=== PATIENT | female | born 1965 | race American Indian/Alaskan Native ===

== ENCOUNTER 2021-07-23 00:40 | Inpatient (IN) | payer MEDICAID ==
--- NOTE | 2021-07-23 00:55 | Emergency Department Report ---
ED Shortness of Breath HPI - General Chief Complaint: Dyspnea/Respdistress Stated Complaint: VIPUL Time Seen by Provider: 07/23/21 00:48 Source: patient, EMS - History of Present Illness Initial Comments: Patient is 56 years old female with history of COPD and hypertension. Patient brought to the emergency room via EMS from home for evaluation of difficulty in breathing for the last few hours. EMS stated that patient initially oxygen saturation was 76% on room air improved to 96% on BiPAP. Patient received Solu- Medrol, magnesium sulfate, albuterol and Atrovent. Upon arrival to the ER patient stated that she is feeling better oxygen saturation currently is 97%. Patient denied any fever or chills. Patient stated that she had COVID-19 in Feb, 2021. MD Complaint: shortness of breath, cough -: This evening Improves With: oxygen, bronchodilators Known History Of: COPD Treatments Prior to Arrival: oxygen, bronchodilator, NIPPV - Related Data Allergies Allergy/AdvReac Type Severity Reaction Status Date / Time No Known Allergies Allergy Verified 07/23/21 01:49 ED Review of Systems ROS: Stated complaint: VIPUL Other details as noted in HPI Comment: All other systems reviewed and negative Constitutional: denies: chills, fever Respiratory: shortness of breath, SOB with exertion, SOB at rest, wheezing. d enies: cough Cardiovascular: dyspnea on exertion. denies: chest pain, palpitations Gastrointestinal: denies: abdominal pain, nausea, vomiting Musculoskeletal: denies: back pain Neurological: denies: headache, weakness ED Physical Exam - General General appearance: alert, in distress - Head Head exam: Present: atraumatic, normocephalic, normal inspection - Eye Eye exam: Present: normal appearance, PERRL - ENT ENT exam: Present: normal exam, normal orophraynx, mucous membranes moist - Neck Neck exam: Present: normal inspection, full ROM. Absent: tenderness, meningismus - Respiratory Respiratory exam: Present: respiratory distress, wheezes, rhonchi, accessory muscle use, decreased breath sounds, prolonged expiratory. Absent: rales - Cardiovascular Cardiovascular Exam: Present: regular rate, normal rhythm, normal heart sounds - GI/Abdominal GI/Abdominal exam: Present: soft, normal bowel sounds. Absent: distended, tenderness, guarding, rebound, rigid, mass, bruit, pulsatile mass, hernia - Extremities Exam Extremities exam: Present: normal inspection, full ROM, normal capillary refill. Absent: tenderness, pedal edema - Back Exam Back exam: Present: normal inspection, full ROM. Absent: CVA tenderness (R), CVA tenderness (L) - Neurological Exam Neurological exam: Present: alert, oriented X3, CN II-XII intact - Psychiatric Psychiatric exam: Present: normal mood - Skin Skin exam: Present: warm, intact, normal color ED Course Vital Signs 07/23/21 07/23/21 07/23/21 01:25 01:33 01:45 Temperature 98.1 F Pulse Rate 109 H 109 H 106 H Respiratory 24 17 14 Rate Blood Pressure 145/77 158/82 Blood Pressure 145/77 [Right] O2 Sat by Pulse 99 98 99 Oximetry ED Medical Decision Making - Lab Data Result diagrams: 07/23/21 00:56 07/23/21 00:56 - EKG Data -: EKG Interpreted by Me EKG shows normal: sinus rhythm Rate: normal - EKG Data Interpretation: no acute changes - Radiology Data Radiology results: report reviewed - Medical Decision Making Patient is 56 years old female with history of COPD and hypertension. Patient brought to the emergency room via EMS from home for evaluation of difficulty in breathing for the last few hours. EMS stated that patient initially oxygen saturation was 76% on room air improved to 96% on BiPAP. Patient received Solu- Medrol, magnesium sulfate, albuterol and Atrovent. Upon arrival to the ER patient stated that she is feeling better oxygen saturation currently is 97%. Patient denied any fever or chills. Patient stated that she had COVID-19 in Feb, 2021. Patient continued on BiPAP. Patient also received albuterol and Atrovent in the ER with improvement in her symptoms. Labs reviewed and showed a potassium of 3.2 and glucose of 398. Chest x-ray is unremarkable. I discussed the patient with Dr. Tom, he agreed to admit the patient to medical service for further management. Critical Care Time: Yes Critical care time in (mins) excluding proc time.: 30 Critical care attestation.: If time is entered above; I have spent that time in minutes in the direct care of this critically ill patient, excluding procedure time. ED Disposition Clinical Impression: Acute respiratory failure with hypoxia, Acute exacerbation of COPD with asthma, Acute hypokalemia, Acute hyperglycemia Disposition: ADMITTED INPATIENT Is pt being admited?: Yes Condition: Stable
[2021-07-23 01:19] LABS: Basophils % (Auto) 0.2 % (0.0-1.8); Eosinophils # (Auto) 0.2 K/mm3 (0.0-0.4); Eosinophils % (Auto) 1.7 % (0.0-4.3); Hematocrit 32.9 % (30.3-42.9); Hemoglobin 10.9 gm/dl (10.1-14.3); Lymphocytes # (Auto) 2.8 K/mm3 (1.2-5.4); Lymphocytes % (Auto) 28.9 % (13.4-35.0); Mean Corpuscular HGB Conc 33 % (30-34); Mean Corpuscular Volume 83 fl (79-97); Monocytes # (Auto) 0.8 K/mm3 (0.0-0.8); Monocytes % (Auto) 8.5 % (0.0-7.3); Platelet Count 241 K/mm3 (140-440); Red Blood Count 3.98 M/mm3 (3.65-5.03); Red Cell Distribution Width 18.7 % (13.2-15.2)
[2021-07-23 01:27] LABS: INR 0.9 (0.87-1.13)
[2021-07-23 01:28] LABS: Partial Thromboplastin Time 25.6 Sec. (24.2-36.6)
[2021-07-23 01:33] LABS: BUN/Creatinine Ratio 24; Blood Urea Nitrogen 29 mg/dL (7-17); Calcium 9.1 mg/dL (8.4-10.2); Hemolysis Index 4
[2021-07-23 01:37] LABS: Alanine Aminotransferase 10 units/L (7-56); Albumin 3.3 g/dL (3.9-5)
--- NOTE | 2021-07-23 01:39 | XRay Report ---
CHEST 1 VIEW 07/23/2021 12:32 AM INDICATION / CLINICAL INFORMATION: Dyspnea. COMPARISON: None available. FINDINGS: SUPPORT DEVICES: None. HEART / MEDIASTINUM: No significant abnormality. LUNGS / PLEURA: Mild increased interstitial markings both lower lung gar. No pneumothorax. ADDITIONAL FINDINGS: No significant additional findings. IMPRESSION: 1. Probable mild CHF Signer Name: David Hopkins MD Signed: 07/23/2021 1:35 AM Workstation Name: [id number]
[2021-07-23 01:49] LABS: Bilirubin,Direct < 0.2 mg/dL (0-0.2)
[2021-07-23] MEDS ORDERED: ALBUTEROL 2.5 MG/3 ML NEBU IH ONE (01:50)
[2021-07-23] MEDS ORDERED: IPRATROPIUM 0.02% NEBU 2.5 ML IH ONE (01:50)
[2021-07-23] MEDS ORDERED: HYDROmorphone 1 MG/1 ML INJ IV PRN (04:42)
[2021-07-23] MEDS ORDERED: ONDANSETRON 4 MG/2 ML INJ IV PRN (04:42)
[2021-07-23] MEDS ORDERED: ALBUTEROL 2.5 MG/3 ML NEBU IH PRN (04:42)
[2021-07-23] MEDS ORDERED: ACETAMINOPHEN 325 MG TAB PO PRN (04:42)
[2021-07-23] MEDS ORDERED: oxyCODONE /ACETAMINOPHEN 5-325MG TAB PO PRN (04:42)
[2021-07-23] MEDS ORDERED: INSULIN REGULAR, HUMAN 100 UNITS/1 ML IV ONE (04:46)
--- NOTE | 2021-07-23 04:49 | History and Physical Report ---
History of Present Illness Date of examination: 07/23/21 Date of admission: 07/23/21 Chief complaint: Shortness of breath Respiratory distress History of present illness: 56 years old female with history of COPD and hypertension was brought to the emergency room via EMS from home for evaluation of difficulty in breathing for the last few hours. patient initially oxygen saturation was 76% on room air improved to 96% on BiPAP. Patient received Solu-Medrol, magnesium sulfate, albuterol and Atrovent. Upon arrival to the ER patient stated that she is feeling better oxygen saturation currently is 97%. Patient denied any fever or chills. Patient stated that she had COVID-19 in Feb, 2021. Patient continued on BiPAP. Patient also received albuterol and Atrovent in the ER with improvement in her symptoms. Labs reviewed and showed a potassium of 3.2 and glucose of 398. Chest x-ray is unremarkable. We are going to admit the patient with a diagnosis of acute respiratory failure/COPD exacerbation Med rec is not available Past History Past Medical History: COPD, hypertension Medications and Allergies Allergies Allergy/AdvReac Type Severity Reaction Status Date / Time No Known Allergies Allergy Verified 07/23/21 01:49 Review of Systems All systems: negative Cardiovascular: shortness of breath, dyspnea on exertion Respiratory: shortness of breath, dyspnea on exertion, wheezing Exam - Constitutional Vitals: Temp Pulse Resp BP Pulse Ox 98.1 F 106 H 14 158/82 99 07/23/21 01:25 07/23/21 01:45 07/23/21 01:45 07/23/21 01:45 07/23/21 01:45 General appearance: Present: no acute distress, well-nourished - EENT Eyes: Present: PERRL ENT: hearing intact, clear oral mucosa - Neck Neck: Present: supple, normal ROM - Respiratory Respiratory effort: normal Respiratory: bilateral: wheezing - Cardiovascular Heart Sounds: Present: S1 & S2. Absent: rub, click - Extremities Extremities: pulses symmetrical, No edema Peripheral Pulses: within normal limits - Abdominal General gastrointestinal: Present: soft, non-tender, non-distended, normal bowel sounds Female genitourinary: Present: normal - Integumentary Integumentary: Present: clear, warm, dry - Musculoskeletal Musculoskeletal: gait normal, strength equal bilaterally - Psychiatric Psychiatric: appropriate mood/affect, intact judgment & insight - Neurologic Neurologic: CNII-XII intact, moves all extremities HEART Score - HEART Score Troponin: Troponin T < 0.010 ng/mL (0.00-0.029) 07/23/21 00:56 Results - Labs CBC & Chem 7: 07/23/21 00:56 10 00:56 Labs: Laboratory Last Values WBC 9.8 K/mm3 (4.5-11.0) 07/23/21 00:56 RBC 3.98 M/mm3 (3.65-5.03) 07/23/21 00:56 Hgb 10.9 gm/dl (10.1-14.3) 07/23/21 00:56 Hct 32.9 % (30.3-42.9) 07/23/21 00:56 MCV 83 fl (79-97) 07/23/21 00:56 MCH 27 pg (28-32) L 07/23/21 00:56 MCHC 33 % (30-34) 07/23/21 00:56 RDW 18.7 % (13.2-15.2) H 07/23/21 00:56 Plt Count 241 K/mm3 (140-440) 07/23/21 00:56 Lymph % (Auto) 28.9 % (13.4-35.0) 07/23/21 00:56 [place] % (Auto) 8.5 % (0.0-7.3) H 07/23/21 00:56 Eos % (Auto) 1.7 % (0.0-4.3) 07/23/21 00:56 Baso % (Auto) 0.2 % (0.0-1.8) 07/23/21 00:56 Lymph # (Auto) 2.8 K/mm3 (1.2-5.4) 07/23/21 00:56 [place] # (Auto) 0.8 K/mm3 (0.0-0.8) 07/23/21 00:56 Eos # (Auto) 0.2 K/mm3 (0.0-0.4) 07/23/21 00:56 Baso # (Auto) 0.0 K/mm3 (0.0-0.1) 07/23/21 00:56 Seg Neutrophils % 60.7 % (40.0-70.0) 07/23/21 00:56 Seg Neutrophils # 5.9 K/mm3 (1.8-7.7) 07/23/21 00:56 PT 12.7 Sec. (12.2-14.9) 07/23/21 00:56 INR 0.90 (0.87-1.13) 07/23/21 00:56 APTT 25.6 Sec. (24.2-36.6) 07/23/21 00:56 Sodium 140 mmol/L (137-145) 07/23/21 00:56 Potassium 3.2 mmol/L (3.6-5.0) L 07/23/21 00:56 Chloride 102.7 mmol/L (98-107) 07/23/21 00:56 Carbon Dioxide 22 mmol/L (22-30) 07/23/21 00:56 Anion Gap 19 mmol/L 07/23/21 00:56 BUN 29 mg/dL (7-17) H 07/23/21 00:56 Creatinine 1.2 mg/dL (0.6-1.2) 07/23/21 00:56 Estimated GFR 46 ml/min 07/23/21 00:56 BUN/Creatinine Ratio 24 % 07/23/21 00:56 Glucose 398 mg/dL (65-100) H 07/23/21 00:56 Calcium 9.1 mg/dL (8.4-10.2) 07/23/21 00:56 Total Bilirubin 0.30 mg/dL (0.1-1.2) 07/23/21 00:56 Direct Bilirubin < 0.2 mg/dL (0-0.2) 07/23/21 00:56 Indirect Bilirubin 0.1 mg/dL 07/23/21 00:56 AST 12 units/L (5-40) 07/23/21 00:56 ALT 10 units/L (7-56) 07/23/21 00:56 Alkaline Phosphatase 107 units/L (35-129) 07/23/21 00:56 Troponin T < 0.010 ng/mL (0.00-0.029) 07/23/21 00:56 NT-Pro-B Natriuret Pep 65.39 pg/mL (0-900) 07/23/21 00:56 Total Protein 7.0 g/dL (6.3-8.2) 07/23/21 00:56 Albumin 3.3 g/dL (3.9-5) L 07/23/21 00:56 Albumin/Globulin Ratio 0.9 % 07/23/21 00:56 - Imaging and Cardiology Chest x-ray: report reviewed Assessment and Plan VTE prophylaxis?: Chemical Plan of care discussed with patient/family: Yes - Patient Problems (1) Acute respiratory failure with hypoxia Current Visit: Yes Status: Acute Plan to address problem: Admit the patient to the medical floor. Oxygen via nasal cannula three to per minute. DuoNeb nebulizer every 4 hours. Albuterol via nebulizer every 4 hours as needed. Solu-Medrol 40 mg IV every 8 hours. Singular 10 mg p.o. daily. Zithromax 500 mg p.o. daily. Continue the home medication. Continue BiPAP if needed (2) Acute exacerbation of COPD with asthma Current Visit: Yes Status: Acute Plan to address problem: Oxygen via nasal cannula three to per minute. DuoNeb nebulizer every 4 hours. Albuterol via nebulizer every 4 hours as needed. Solu-Medrol 40 mg IV every 8 hours. Singular 10 mg p.o. daily. Zithromax 500 mg p.o. daily. Continue the home medication. Continue BiPAP if needed (3) Hypertension Current Visit: Yes Status: Acute Plan to address problem: Hydralazine 10 mg IV every 6 hours as needed. We will continue the home medication (4) Hyperglycemia Current Visit: Yes Status: Acute Plan to address problem: We will put the patient on Humalog sliding scale with Accu-Chek before meals and at bedtime moderate dose coverage. Diabetic education (5) Hypokalemia Current Visit: Yes Status: Acute Plan to address problem: Potassium is supplemented. Recheck BMP in the morning (6) DVT prophylaxis Current Visit: Yes Status: Acute Plan to address problem: Heparin 5000 units subcu every 8 hours for DVT prophylaxis. Pepcid 20 mg p.o. twice daily for GI prophylaxis. Patient is a full code
[2021-07-23] MEDS ORDERED: DEXTROSE 50% IN WATER (25GM) 50 ML SYRINGE IV PRN ×2 (04:50→08:02)
[2021-07-23] MEDS ORDERED: FUROSEMIDE 40 MG/4 ML INJ IV ONE (04:51)
[2021-07-23] MEDS ORDERED: methylPREDNISolone Sod Succinate 40 MG/1 ML INJ IV SCH (06:00)
[2021-07-23] MEDS: HEPARIN 5,000 UNIT/1 ML VIAL SUB-Q SCH ×3 (06:45→22:10)
[2021-07-23] MEDS ORDERED: SODIUM CHLORIDE 0.9% 1000 ML 1,000 ML ONE (07:26)
[2021-07-23] MEDS ORDERED: INSULIN LISPRO 100 UNIT/ML SUB-Q SCH (07:30)
[2021-07-23] MEDS: POTASSIUM CHLORIDE 10 MEQ 10 MEQ/100 ML BAG IV SCH ×2 (07:35→09:08)
[2021-07-23] MEDS: FAMOTIDINE 20 MG TAB PO SCH ×2 (08:45→22:09)
[2021-07-23] MEDS: INSULIN NPH, HUMAN 100 UNIT/1 ML SUB-Q SCH ×2 (10:45→17:25)
[2021-07-23] MEDS ORDERED: INSULIN NPH/REGULAR 70/30 INJ SUB-Q ONE (13:00)
[2021-07-23] MEDS: INSULIN REGULAR, HUMAN 100 UNITS/1 ML SUB-Q SCH ×3 (13:27→22:22)
[2021-07-23] MEDS ORDERED: INSULIN NPH, HUMAN 100 UNIT/1 ML SUB-Q SCH (14:00)
[2021-07-23] MEDS: IPRATROPIUM/ALBUTEROL SULFATE 3 ML AMPUL.NEB IH SCH ×3 (14:30→20:00)
--- NOTE | 2021-07-23 14:54 | Event Note ---
Date: 07/23/21 The patient was evaluated today and is currently hemodynamically stable. Consult was placed for pulmonology in order to further assess the patient. A basal insulin regimen was initiated given significant hyperglycemia. We will continue to monitor.
[2021-07-24] MEDS: MONTELUKAST 10 MG TAB PO SCH ×2 (00:14→21:59)
[2021-07-24] MEDS: IPRATROPIUM/ALBUTEROL SULFATE 3 ML AMPUL.NEB IH SCH ×4 (01:38→20:22)
[2021-07-24] MEDS: HEPARIN 5,000 UNIT/1 ML VIAL SUB-Q SCH ×3 (05:52→21:59)
[2021-07-24 08:11] LABS: Basophils # (Auto) 0.1 K/mm3 (0.0-0.1); Basophils % (Auto) 1.3 % (0.0-1.8); Eosinophils % (Auto) 0.4 % (0.0-4.3); Lymphocytes # (Auto) 1.7 K/mm3 (1.2-5.4); Lymphocytes % (Auto) 20.3 % (13.4-35.0); Mean Corpuscular HGB Conc 35 % (30-34); Mean Corpuscular Volume 82 fl (79-97); Monocytes # (Auto) 0.6 K/mm3 (0.0-0.8); Monocytes % (Auto) 7.5 % (0.0-7.3); Platelet Count 228 K/mm3 (140-440); Red Blood Count 3.54 M/mm3 (3.65-5.03); Red Cell Distribution Width 18.7 % (13.2-15.2)
[2021-07-24 08:38] LABS: Calcium 9.5 mg/dL (8.4-10.2)
[2021-07-24] MEDS: INSULIN REGULAR, HUMAN 100 UNITS/1 ML SUB-Q SCH ×4 (09:29→23:08)
[2021-07-24] MEDS: INSULIN NPH, HUMAN 100 UNIT/1 ML SUB-Q SCH ×2 (09:39→17:05)
[2021-07-24] MEDS: FAMOTIDINE 20 MG TAB PO SCH ×2 (09:39→21:59)
[2021-07-24] MEDS: predniSONE 20 MG TAB PO SCH (09:39)
--- NOTE | 2021-07-24 10:43 | Electrocardiograph Report ---
[facility] Test Date: 2021-07-23 Test Time: 21:14:16 Pat Name: RAAD SANTANA Department: Room: A379 1 Gender: F [employer]: JULIA : [id number] Requested By: KENNY LANE Order Number: [id number] Reading MD: Oziel Frey Measurements Intervals [place] Rate: 101 P: 35 ND: 201 QRS: -9 QRSD: 90 T: -27 QT: 343 QTc: 444 Interpretive Statements Sinus tachycardia Borderline prolonged ND interval Left ventricular hypertrophy [id number]'[id number] PRWP No previous ECG available for comparison Electronically Signed On 07-24-2021 10:42:37 EDT by Oziel Fery
--- NOTE | 2021-07-24 12:20 | Consultation ---
History of Present Illness Consult date: 07/24/21 Requesting physician: KENIA BRADSHAW Reason for consult: hypoxemia History of present illness: 56 y/o female admitted with COPD exacerbation. Improve and ready for discharge. Past History Past Medical History: COPD, hypertension Medications and Allergies Allergies Allergy/AdvReac Type Severity Reaction Status Date / Time No Known Allergies Allergy Verified 07/23/21 01:49 Home Medications Medication Instructions Recorded Confirmed Last Taken Type Rosuvastatin Calcium 5 mg PO QHS 07/23/21 08/03/21 07/21/21 History ALBUTEROL NEB's [Proventil 0.083% 2.5 mg IH Q8H PRN #30 neb 07/25/21 08/03/21 Unknown Rx NEBS] Albuterol Sulfate [Proair 90 mcg IH Q4H PRN 30 Days #2 07/25/21 08/03/21 Unknown Rx Digihaler] aer.pw.bas Budesonide/Formoterol Fumarate 10.2 gm IH BID 30 Days #2 07/25/21 08/03/21 Unknown Rx [Symbicort 160-4.5 Mcg Inhaler] hfa.aer.ad Montelukast [Singulair] 10 mg PO QHS 30 Days #30 tablet 07/25/21 08/03/21 Unknown Rx ALBUTEROL NEB's [Proventil 0.083% 2.5 mg IH Q4HRT PRN nebu 08/05/21 Unknown Rx NEBS] Acetaminophen [Acetaminophen TAB] 650 mg PO Q4H PRN tablet 08/05/21 Unknown Rx Antacid [Alum-Mag Hydrox-Simeth 30 ml PO Q4H PRN oral.liqd 08/05/21 Unknown Rx [id number]/5Ml] Arformoterol Nebu [Brovana Nebu] 15 mcg IH Q12HRT ml 08/05/21 Unknown Rx AtorvaSTATin 10 mg PO QHS tablet 08/05/21 Unknown Rx Budesonide [Pulmicort Respules] 0.5 mg IH Q12HRT nebu 08/05/21 Unknown Rx Dextrose 50% in Water [D50W (25GM) 50 ml IV Q30MIN PRN syringe 08/05/21 Unknown Rx Syringe] Enoxaparin 40 mg SUB-Q QDAY syringe 08/05/21 Unknown Rx Insulin NPH, Human [NovoLIN N] 25 unit SUB-Q QPMDIAB units 08/05/21 Unknown Rx Lispro Insulin [HumaLOG] 0 unit SUB-Q Q4HR units 08/05/21 Unknown Rx Metoclopramide [Reglan INJ] 10 mg IV Q6H PRN vial 08/05/21 Unknown Rx Montelukast [Singulair] 10 mg PO QHS tablet 08/05/21 Unknown Rx Sennosides Tab [Senokot] 8.6 mg PO Q12HR PRN tablet 08/05/21 Unknown Rx hydrALAZINE [Apresoline INJ] 10 mg IV Q4HR PRN vial 08/05/21 Unknown Rx oxyCODONE /ACETAMINOPHEN [Percocet 1 tab PO Q6H PRN tablet 08/05/21 Unknown Rx 5/325 mg] Active Meds: Active Medications Acetaminophen (Acetaminophen 325 Mg Tab) 650 mg PO Q4H PRN PRN Reason: Pain MILD(1-3)/Fever >100.5/QUIROGA Albuterol (Albuterol 2.5 Mg/3 Ml Nebu) 2.5 mg IH Q4HRT PRN PRN Reason: Shortness Of Breath Albuterol/Ipratropium (Ipratropium/Albuterol Sulfate 3 Ml Ampul.Neb) 1 ampul IH Q6HRT [facility] Last Admin: 07/24/21 08:31 Dose: 1 ampul Documented by: Dextrose (Dextrose 50% In Water (25gm) 50 Ml Syringe) 50 ml IV Q30MIN PRN; Protocol PRN Reason: Hypoglycemia Famotidine (Famotidine 20 Mg Tab) 20 mg PO BID [facility] Last Admin: 07/24/21 09:39 Dose: 20 mg Documented by: Heparin Sodium (Porcine) (Heparin 5,000 Unit/1 Ml Vial) 5,000 unit SUB-Q Q8HR [facility] Last Admin: 07/24/21 05:52 Dose: 5,000 unit Documented by: Hydromorphone HCl (Hydromorphone 1 Mg/1 Ml Inj) 0.5 mg IV Q3H PRN PRN Reason: Pain , Severe (7-10) Insulin Human NPH (Insulin Nph, Human 100 Unit/1 Ml) 15 unit SUB-Q BIDDIAB [facility] Last Admin: 07/24/21 09:39 Dose: 15 unit Documented by: Insulin Human Regular (Insulin Regular, Human 100 Units/1 Ml) 0 units SUB-Q ACHS [facility]; Protocol Last Admin: 07/24/21 09:29 Dose: Not Given Documented by: Montelukast Sodium (Montelukast 10 Mg Tab) 10 mg PO QHS [facility] Last Admin: 07/24/21 00:14 Dose: 10 mg Documented by: Ondansetron HCl (Ondansetron 4 Mg/2 Ml Inj) 4 mg IV Q8H PRN PRN Reason: Nausea And Vomiting Oxycodone/Acetaminophen (Oxycodone /Acetaminophen 5-325mg Tab) 1 tab PO Q6H PRN PRN Reason: Pain, Moderate (4-6) Prednisone (Prednisone 20 Mg Tab) 40 mg PO QDAY [facility] Last Admin: 07/24/21 09:39 Dose: 40 mg Documented by: Sodium Chloride (Sodium Chloride 0.9% 10 Ml Flush Syringe) 10 ml IV BID [facility] Last Admin: 07/24/21 09:40 Dose: 10 ml Documented by: Sodium Chloride (Sodium Chloride 0.9% 10 Ml Flush Syringe) 10 ml IV PRN PRN PRN Reason: LINE FLUSH Review of Systems All systems: negative Physical Examination Vital signs: Vital Signs Temp Pulse Resp BP Pulse Ox 98.1 F 109 H 24 145/77 98 07/23/21 01:25 07/23/21 01:25 07/23/21 01:25 07/23/21 01:25 07/23/21 01:25 General appearance: alert Eyes: non-icteric Ascultation: Bilateral: diminished breath sounds Results - Laboratory Findings CBC and BMP: 07/25/21 06:45 07/25/21 06:45 PT/INR, D-dimer PT 12.7 Sec. (12.2-14.9) 07/23/21 00:56 INR 0.90 (0.87-1.13) 07/23/21 00:56 Abnormal lab findings: Abnormal Labs 07/23/21 07/23/21 07/23/21 00:56 00:56 00:56 RBC Hgb Hct MCH 27 L MCHC RDW 18.[address] [place] % (Auto) 8.5 H Seg Neutrophils % Potassium 3.2 L Chloride BUN 29 H Creatinine Glucose 398 H POC Glucose Albumin 3.3 L 07/23/21 07/23/2107/23/21 07:18 11:52 17:12 RBC Hgb Hct MCH MCHC RDW [place] % (Auto) Seg Neutrophils % Potassium Chloride BUN Creatinine Glucose POC Glucose 496 H 453 H 467 H Albumin 07/23/21 07/23/21 07/24/21 19:50 21:52 07:37 RBC 3.54 L Hgb 10.0 L Hct 29.0 L MCH MCHC 35 H RDW 18.[address] [place] % (Auto) 7.5 H Seg Neutrophils % 70.5 H Potassium Chloride BUN Creatinine Glucose POC Glucose 346 H 299 H Albumin 07/24/21 07/24/21 07/24/21 07:37 09:08 11:18 RBC Hgb Hct MCH MCHC RDW [place] % (Auto) Seg Neutrophils % Potassium 3.5 L D Chloride 109.4 H BUN 33 H Creatinine 1.3 H Glucose 109 H POC Glucose 117 H 193 H Albumin Assessment and Plan 56 y/o female with acute exacerbation of COPD 1. Steroid taper 2. Resume home COPD regimen 3. Follow up in office.
--- NOTE | 2021-07-24 16:11 | Progress Note ---
Assessment and Plan Assessment and plan: #Acute hypoxic respiratory failure -Hypoxic to 70s on room air Covid negative -Covid negative -Patient reports outpatient work-up for possible COPD, continue outpatient -Pulmonology consulted, recs appreciated -Home O2 evaluation, prior to discharge #History of vocal cord paralysis -Patient follow-up with ENT outpatient #Type 2 diabetes, insulin-dependent -Continue Humulin 15 units twice daily + sliding scale -Goal glucose less than 180 while inpatient #hypokalemia -K 3.5 -will monitor and replete Disposition Plan: Home Total Time Spent with Patient (Minutes): 30 minutes History Interval history: No acute events overnight. Patient denies shortness of breath, but feels comfortable with supplemental O2. Hospitalist Physical - Physical exam Narrative exam: GENERAL: Well-developed well-nourished. Lying in bed in no acute distress. HEENT: Nasal cannula at 2 L/min. CHEST/LUNGS: Expiratory stridor. CTAB. HEART/CARDIOVASCULAR: RRR. No murmur, rubs or gallops appreciated. ABDOMEN: +BS. NT/ND. NEURO: No focal motor deficit. Follows all commands. EXTREMITIES: No cyanosis, clubbing or edema. PSYCH: Cooperative. - Constitutional Vitals: Temp Pulse Resp BP Pulse Ox 98.1 F 88 18 148/85 96 07/24/21 11:48 07/24/21 16:00 07/24/21 16:00 07/24/21 11:48 07/24/21 13:23 General appearance: Present: no acute distress, well-nourished HEART Score - HEART Score Troponin: Troponin T < 0.010 ng/mL (0.00-0.029) 07/23/21 00:56 Results - Labs CBC & Chem 7: 07/24/21 07:37 07/24/21 07:37 Labs: Laboratory Last Values WBC 8.4 K/mm3 (4.5-11.0) 07/24/21 07:37 RBC 3.54 M/mm3 (3.65-5.03) L 07/24/21 07:37 Hgb 10.0 gm/dl (10.1-14.3) L 07/24/21 07:37 Hct 29.0 % (30.3-42.9) L 07/24/21 07:37 MCV 82 fl (79-97) 07/24/21 07:37 MCH 28 pg (28-32) 07/24/21 07:37 MCHC 35 % (30-34) H 07/24/21 07:37 RDW 18.7 % (13.2-15.2) H 07/24/21 07:37 Plt Count 228 K/mm3 (140-440) 07/24/21 07:37 Lymph % (Auto) 20.3 % (13.4-35.0) 07/24/21 07:37 [place] % (Auto) 7.5 % (0.0-7.3) H 07/24/21 07:37 Eos % (Auto) 0.4 % (0.0-4.3) 07/24/21 07:37 Baso % (Auto) 1.3 % (0.0-1.8) 07/24/21 07:37 Lymph # (Auto) 1.7 K/mm3 (1.2-5.4) 07/24/21 07:37 [place] # (Auto) 0.6 K/mm3 (0.0-0.8) 07/24/21 07:37 Eos # (Auto) 0.0 K/mm3 (0.0-0.4) 07/24/21 07:37 Baso # (Auto) 0.1 K/mm3 (0.0-0.1) 07/24/21 07:37 Seg Neutrophils % 70.5 % (40.0-70.0) H 07/24/21 07:37 Seg Neutrophils # 5.9 K/mm3 (1.8-7.7) 07/24/21 07:37 PT 12.7 Sec. (12.2-14.9) 07/23/21 00:56 INR 0.90 (0.87-1.13) 07/23/21 00:56 APTT 25.6 Sec. (24.2-36.6) 07/23/21 00:56 Sodium 144 mmol/L (137-145) 07/24/21 07:37 Potassium 3.5 mmol/L (3.6-5.0) L D 07/24/21 07:37 Chloride 109.4 mmol/L (98-107) H 07/24/21 07:37 Carbon Dioxide 22 mmol/L (22-30) 07/24/21 07:37 Anion Gap 16 mmol/L 07/24/21 07:37 BUN 33 mg/dL (7-17) H 07/24/21 07:37 Creatinine 1.3 mg/dL (0.6-1.2) H 07/24/21 07:37 Estimated GFR 51 ml/min 07/24/21 07:37 BUN/Creatinine Ratio 25 % 07/24/21 07:37 Glucose 109 mg/dL (65-100) H 07/24/21 07:37 POC Glucose 264 mg/dL (70-105) H 07/24/21 15:38 Calcium 9.5 mg/dL (8.4-10.2) 07/24/21 07:37 Phosphorus 4.40 mg/dL (2.5-4.5) 07/24/21 07:37 Magnesium 2.20 mg/dL (1.7-2.3) 07/24/21 07:37 Total Bilirubin 0.30 mg/dL (0.1-1.2) 07/23/21 00:56 Direct Bilirubin < 0.2 mg/dL (0-0.2) 07/23/21 00:56 Indirect Bilirubin 0.1 mg/dL 07/23/21 00:56 AST 12 units/L (5-40) 07/23/21 00:56 ALT 10 units/L (7-56) 07/23/21 00:56 Alkaline Phosphatase 107 units/L (35-129) 07/23/21 00:56 Troponin T < 0.010 ng/mL (0.00-0.029) 07/23/21 00:56 NT-Pro-B Natriuret Pep 65.39 pg/mL (0-900) 07/23/21 00:56 Total Protein 7.0 g/dL (6.3-8.2) 07/23/21 00:56 Albumin 3.3 g/dL (3.9-5) L 07/23/21 00:56 Albumin/Globulin Ratio 0.9 % 07/23/21 00:56 Valadez/IV: Voiding Method Toilet Active Medications - Current Medications Current Medications: Generic Name Dose Route Start Last Admin Trade Name Freq PRN Reason Stop Dose Admin Acetaminophen 650 mg 07/23/21 04:42 Acetaminophen 325 Mg Tab PO Q4H PRN Pain MILD(1-3)/Fever >100.5/QUIROGA Albuterol 2.5 mg 07/23/21 04:42 Albuterol 2.5 Mg/3 Ml Nebu IH Q4HRT PRN Shortness Of Breath Albuterol/Ipratropium 1 ampul 07/23/21 08:00 07/24/21 16:00 Ipratropium/Albuterol Sulfate 3 Ml Ampul.Neb IH 1 ampul Q6HRT JUSTO Administration Dextrose 50 ml 07/23/21 08:02 Dextrose 50% In Water (25gm) 50 Ml Syringe IV Q30MIN PRN Hypoglycemia Protocol Famotidine 20 mg 07/23/21 10:00 07/24/21 09:39 Famotidine 20 Mg Tab PO 20 mg BID JUSTO Administration Heparin Sodium (Porcine) 5,000 unit 07/23/21 06:00 07/24/21 13:00 Heparin 5,000 Unit/1 Ml Vial SUB-Q 5,000 unit Q8HR JUSTO Administration Hydromorphone HCl 0.5 mg 07/23/21 04:42 Hydromorphone 1 Mg/1 Ml Inj IV Q3H PRN Pain , Severe (7-10) Insulin Human NPH 15 unit 07/23/21 09:00 07/24/21 09:39 Insulin Nph, Human 100 Unit/1 Ml SUB-Q 15 unit BIDDIAB JUSTO Administration Insulin Human Regular 0 units 07/23/21 11:30 07/24/21 13:04 Insulin Regular, Human 100 Units/1 Ml SUB-Q 3 units ACHS JUSTO Administration Protocol Montelukast Sodium 10 mg 07/23/21 22:00 07/24/21 00:14 Montelukast 10 Mg Tab PO 10 mg QHS JUSTO Administration Ondansetron HCl 4 mg 07/23/21 04:42 Ondansetron 4 Mg/2 Ml Inj IV Q8H PRN Nausea And Vomiting Oxycodone/Acetaminophen 1 tab 07/23/21 04:42 Oxycodone /Acetaminophen 5-325mg Tab PO Q6H PRN Pain, Moderate (4-6) Prednisone 40 mg 07/24/21 10:00 10 09:39 Prednisone 20 Mg Tab PO 40 mg QDAY JUSTO Administration Sodium Chloride 10 ml 07/23/21 10:00 07/24/21 09:40 Sodium Chloride 0.9% 10 Ml Flush Syringe IV 10 ml BID JUSTO Administration Sodium Chloride 10 ml 07/23/21 04:42 Sodium Chloride 0.9% 10 Ml Flush Syringe IV PRN PRN LINE FLUSH Nutrition/Malnutrition Assess - Dietary Evaluation Nutrition/Malnutrition Findings: Nutrition Notes Start: 07/23/21 16:09 Freq: Status: Active Protocol: Document 07/23/21 16:09 TIA (Rec: 07/23/21 16:43 TIA [id number]) Nutrition Notes Need for Assessment generated from: Education Initial or Follow up Assessment Current Diagnosis Respiratory Failure Other Pertinent Diagnosis Hx of COPD, HTN, and COVID-19 Current Diet Cardiac diet (since B 07/23). Labs/Tests 07/23: K 3.2, BUN 29, GLU 398. Pertinent Medications 07/23: Nutritionally uneremarkable. Height 5 ft 4 in Weight 106.633 kg [place] Body Weight (kg) 54.54 BMI 40.3 Weight Status Obese Percent of energy/protein needs met: Prescribed Cardiac diet provides for all energy/ protein needs (2,230 Kcal/85 g ) during LOS. Burn Absent Trauma Absent GI Symptoms Diarrhea Food Allergy No Skin Integrity/Comment Integumentary; clear, warm, dry. Minimum of two criteria No physical signs of malnutrition #1 Nutrition Diagnosis Food and nutrition-related knowledge deficit Comments: Pt could benefit from some nutrition education to support multiple chronic metabolic conditions present at the time . Etiology Concomitant chronic metabolic conditions. As Evidenced by Signs and Symptoms BMI 40.3, And Hx of COPD, and HTN. Is patient on ventilator? No Is Patient Ambulatory and/or Out of Bed Yes REE-([facility]-ambulatory/OOB) [ 6670.729 NUTR.MSJOOB] Kcal/Kg value to use for calculation 21 Approximate Energy Requirements Using 2239 kcal/Kg Calculation Used for Recommendations Kcal/kg Additional Notes Protein: 0.8-1.0 g/Kg/day; 44- 55 g/day; 176-220 Kcal/day ( from IBW). Fluids: 1.0 ml/Kcal, or as per MD. Nutrition Intervention Change Diet Order: Continue Cardiac Diet. Education Handouts Provided AND: Hypertension Nutrition Therapy, Weight Loss Tips, and Metabolic Syndrome Menu. Goal #1 Provide Pt with educational tools to support behavioral changes towards a healthy lifestyle. Goal #2 Maintain body weight within +/ -3% of current BWt during LOS. Goal #3 Achieve and maintain acceptable chemistry lab values during LOS. Follow-Up By: 07/25/21 Additional Comments Educational matrial ready to be delivered once Pt is located in her room. Continue monitoring acceptance of food, %PO intake of meals, hydration, and BM.
[2021-07-25 05:28] VITALS: BP 133/62
[2021-07-25] MEDS: HEPARIN 5,000 UNIT/1 ML VIAL SUB-Q SCH ×2 (07:01→13:10)
[2021-07-25 07:06] LABS: Hematocrit 29.5 % (30.3-42.9); Hemoglobin 9.7 gm/dl (10.1-14.3); Mean Corpuscular HGB Conc 33 % (30-34); Mean Corpuscular Volume 83 fl (79-97); Platelet Count 255 K/mm3 (140-440); Red Blood Count 3.56 M/mm3 (3.65-5.03); Red Cell Distribution Width 18.9 % (13.2-15.2)
[2021-07-25 07:45] LABS: Calcium 9.2 mg/dL (8.4-10.2)
[2021-07-25] MEDS ORDERED: IPRATROPIUM/ALBUTEROL SULFATE 3 ML AMPUL.NEB IH SCH (08:00)
[2021-07-25] MEDS: INSULIN REGULAR, HUMAN 100 UNITS/1 ML SUB-Q SCH ×2 (08:21→12:27)
[2021-07-25] MEDS: INSULIN NPH, HUMAN 100 UNIT/1 ML SUB-Q SCH (08:29)
[2021-07-25] MEDS ORDERED: POTASSIUM CHLORIDE ER 20 MEQ TAB PO NR (09:00)
[2021-07-25] MEDS: predniSONE 20 MG TAB PO SCH (09:58)
[2021-07-25] MEDS: FAMOTIDINE 20 MG TAB PO SCH (09:58)
[2021-07-25] MEDS ORDERED: IPRATROPIUM/ALBUTEROL SULFATE 3 ML AMPUL.NEB IH NR (12:30)
--- NOTE | 2021-07-25 12:37 | Discharge Summary ---
Providers - Providers Date of Admission: 07/23/21 06:22 Date of discharge: 07/25/21 Attending physician: KELLI BARRAZA MD 07/23/21 04:50 Consult to Dietitian/Nutrition [CONS] Routine Physician Instructions: Reason For Exam: Reason for Consult: Diet education 07/23/21 09:12 Consult to Physician [CONS] Routine Comment: Consulting Provider: TIMO CARLSON Physician Instructions: Reason For Exam: COPD exacerbation; uncontrolled COPD at baseline Primary care physician: GANG RIPSAW OPERATOR Hospitalization Reason for admission: Respiratory failure Condition: Stable Hospital course: 56-year-old female history of COPD, hypertension and vocal cord paralysis who presented with difficulty breathing on 07/23. Found to be hypoxic with O2 saturation 76% on room air. She was admitted for acute hypoxic respiratory failure. Started on BiPAP received nebulizer treatments and steroids. Her potassium was found to be 3.2 and glucose was 398. Her glucose improved with sliding scale. Potassium was repleted. Once stable she was discharged home with instructions to follow-up with ENT and pulmonary outpatient. Disposition: 01 HOME / SELF CARE / HOMELESS Final Discharge Diagnosis (Prints w/discharge instructions): Acute hypoxic respiratory failure. Hypokalemia. Insulin-dependent type 2 diabetes. COPD exacerbation Time spent for discharge: 10 minutes Core Measure Documentation - Palliative Care Palliative Care/ Comfort Measures: Not Applicable - Core Measures Any of the following diagnoses?: none Exam - Physical Exam Narrative exam: GENERAL: Well-developed well-nourished. Lying in bed in no acute distress. CHEST/LUNGS: Expiratory stridor. CTAB. HEART/CARDIOVASCULAR: RRR. No murmur, rubs or gallops appreciated. ABDOMEN: +BS. NT/ND. NEURO: No focal motor deficit. Follows all commands. EXTREMITIES: No cyanosis, clubbing or edema. PSYCH: Cooperative. - Constitutional Vitals: Temp Pulse Resp BP Pulse Ox 98.3 F 76 22 133/62 95 07/25/21 05:26 07/25/21 05:26 07/25/21 05:26 07/25/21 05:26 07/25/21 08:58 Plan Care Plan Goals: Please follow-up with your Pulmonary appointment. We have prescribed you to inhalers. The albuterol inhaler,you only use if you absolutely have shortness of breath. The other inhaler called Symbicort, and will use daily. Assessment: Patient admitted with acute hypoxic respiratory failure. Respiratory failure resolved. Patient was evaluated for home oxygen and maintained excellent oxygen saturation with ambulation and at rest without oxygen. Pulmonary was consulted and recommended no changes. Patient was discharged with recommendations to follow through with outpatient pulmonary referral. Follow up with: PRIMARY CARE, [Primary Care Provider] - 3-5 Days Prescriptions: Montelukast [Singulair] 10 mg PO QHS 30 Days #30 tablet Albuterol Sulfate [Proair Digihaler] 90 mcg IH Q4H PRN 30 Days #2 aer.pw.bas PRN Reason: Shortness Of Breath ALBUTEROL NEB's [Proventil 0.083% NEBS] 2.5 mg IH Q8H PRN #30 neb PRN Reason: Shortness Of Breath Budesonide/Formoterol Fumarate [Symbicort 160-4.5 Mcg Inhaler] 10.2 gm IH BID 30 Days #2 hfa.aer.ad
== END 2021-07-25 14:30 | disposition home or self-care (01) | DRG 189 ==
LOC: ED 00:40 → 4A 06:22 → 3A 20:35
PROVIDERS: ADMIT Hospitalist; ATTEND Student in an Organized Health Care Education/Training Program
DX: J96.01 Acute respiratory failure with hypoxia (principal); J44.1 Chronic obstructive pulmonary disease with (acute) exacerbation; I10 Essential (primary) hypertension; Z20.822 Contact with and (suspected) exposure to COVID-19; E87.6 Hypokalemia; R73.9 Hyperglycemia, unspecified
CPT/HCPCS: 36415; 71045; 80048; 80076; 82962; 83735; 83880; 84100; 84132; 84484; 85025; 85027; 85610; 85730; 93005; 94640; 94760; G0378; J1644; J1815; J1940; J2920; J3480; J7030; J7512

== ENCOUNTER 2021-08-03 17:10 | Inpatient (IN) | payer MEDICAID ==
[2021-08-03] MEDS ORDERED: IPRATROPIUM 0.02% NEBU 2.5 ML IH ONE (17:32)
[2021-08-03] MEDS ORDERED: ALBUTEROL 2.5 MG/3 ML NEBU IH ONE (17:32)
[2021-08-03] MEDS ORDERED: methylPREDNISolone Sod Succinate 125 MG/2 ML INJ IV ONE (17:32)
[2021-08-03] MEDS ORDERED: MAGNESIUM SULFATE 2 GM/50 ML BAG IV ONE (17:33)
--- NOTE | 2021-08-03 17:37 | Emergency Department Report ---
ED Shortness of Breath HPI - General Chief Complaint: Dyspnea/Respdistress Stated Complaint: DIFFICULTY BREATHING Time Seen by Provider: 08/03/21 17:21 Source: EMS, old records reviewed Mode of arrival: Stretcher Limitations: No Limitations - History of Present Illness Initial Comments: 56-year-old female the past medical history of reactive airway disease after stan Covid in February of this year, diabetes, hypertension presents to the hospital planing of worsening shortness of breath today. Patient denies any lung disease prior to stan Covid. She has been back and forth to [facility] with complaints of wheezing and shortness of breath. She admitted here for the first time last week and diagnosed with COPD exacerbation. Patient sta ailin she gets temporary relief with emergent treatment but symptoms return. Patient developed worsening shortness of breath with difficulty speaking around and CPAP was initiated. Patient was placed on BiPAP here. As per respiratory therapist her room air O2 sat remained in the nineties with patient had increased work of breathing. Patient complained of sharp left-sided chest pain last night that has since resolved. Occasional cough reported. No history of PE/DVT. Patient using a inhaler and states that her nebulizer was not delivered yesterday as scheduled. PMD: [facility]. Patient saw her PMD aggravated today with referred to multiple specialists including a daily sales audit clerk. - Related Data Home Medications Medication Instructions Recorded Confirmed Last Taken Insulin Aspart (Nf) [NovoLOG 20 units SQ QAM 07/23/21 08/03/21 07/22/21 Flexpen] Insulin Aspart (Nf) [NovoLOG 22 units SQ QDAY 07/23/21 08/03/21 07/22/21 Flexpen] Insulin Aspart (Nf) [NovoLOG 25 units SQ QPM 07/23/21 08/03/21 07/21/21 Flexpen] Insulin Detemir [Levemir Flextouch] 40 units SQ QHS 07/23/21 08/03/21 07/22/21 Lisinopril [Zestril] 5 mg PO QDAY 07/23/21 08/03/21 07/22/21 Metformin HCl [metFORMIN] 1,000 mg PO BID 07/23/21 08/03/21 07/22/21 Rosuvastatin Calcium 5 mg PO QHS 07/23/21 08/03/21 07/21/21 Previous Rx's Medication Instructions Recorded Last Taken Type ALBUTEROL NEB's [Proventil 0.083% 2.5 mg IH Q8H PRN #30 neb 07/25/21 Unknown Rx NEBS] Albuterol Sulfate [Proair 90 mcg IH Q4H PRN 30 Days #2 07/25/21 Unknown Rx Digihaler] aer.pw.bas Budesonide/Formoterol Fumarate 10.2 gm IH BID 30 Days #2 07/25/21 Unknown Rx [Symbicort 160-4.5 Mcg Inhaler] hfa.aer.ad Montelukast [Singulair] 10 mg PO QHS 30 Days #30 tablet 07/25/21 Unknown Rx Nebulizer Accessories [Adult 1 each MC QDAY PRN #1 each 07/25/21 Unknown Rx Aerosol Mask] Nebulizer and Compressor 1 each MC QDAY #1 each 07/25/21 Unknown Rx [Innospire Mini Compressor Neb] predniSONE [Deltasone] 40 mg PO QDAY 2 Days #2 tablet 07/25/21 Unknown Rx Allergies Allergy/AdvReac Type Severity Reaction Status Date / Time No Known Allergies Allergy Verified 07/23/21 01:49 ED Review of Systems ROS: Stated complaint: DIFFICULTY BREATHING Other details as noted in HPI Comment: All other systems reviewed and negative ED Past Medical Hx - Past Medical History Hx Hypertension: Yes Hx CVA: No Hx Heart Attack/AMI: No Hx Congestive Heart Failure: No Hx Diabetes: Yes Hx Deep Vein Thrombosis: No Hx Pulmonary Embolism: No Hx GERD: No Hx Liver Disease: No Hx Renal Disease: No Hx Sickle Cell Disease: No Hx Arthritis: No Hx Headaches / Migraines: No Hx Seizures: No Hx Kidney Stones: No Hx Psychiatric Treatment: No Hx Asthma: Yes Hx COPD: Yes Hx Tuberculosis: No Hx Dementia: No Hx HIV: No - Surgical History Hx Coronary Stent: No Hx Open Heart Surgery: No Hx Pacemaker: No Hx Internal Defibrillator: No Hx Cholecystectomy: No Hx Appendectomy: No Hx Breast Surgery: No - Social History Smoking Status: Never Smoker - Medications Home Medications: Home Medications Medication Instructions Recorded Confirmed Last Taken Type Insulin Aspart (Nf) [NovoLOG 20 units SQ QAM 07/23/21 08/03/21 07/22/21 History Flexpen] Insulin Aspart (Nf) [NovoLOG 22 units SQ QDAY 07/23/21 08/03/21 07/22/21 History Flexpen] Insulin Aspart (Nf) [NovoLOG 25 units SQ QPM 07/23/21 08/03/21 07/21/21 History Flexpen] Insulin Detemir [Levemir Flextouch] 40 units SQ QHS 07/23/21 08/03/21 07/22/21 History Lisinopril [Zestril] 5 mg PO QDAY 07/23/21 08/03/21 07/22/21 History Metformin HCl [metFORMIN] 1,000 mg PO BID 07/23/21 08/03/21 07/22/21 History Rosuvastatin Calcium 5 mg PO QHS 07/23/21 08/03/21 07/21/21 History ALBUTEROL NEB's [Proventil 0.083% 2.5 mg IH Q8H PRN #30 neb 07/25/21 08/03/21 Unknown Rx NEBS] Albuterol Sulfate [Proair 90 mcg IH Q4H PRN 30 Days #2 07/25/21 08/03/21 Unknown Rx Digihaler] aer.pw.bas Budesonide/Formoterol Fumarate 10.2 gm IH BID 30 Days #2 07/25/21 08/03/21 Unknown Rx [Symbicort 160-4.5 Mcg Inhaler] hfa.aer.ad Montelukast [Singulair] 10 mg PO QHS 30 Days #30 tablet 07/25/21 08/03/21 Unknown Rx Nebulizer Accessories [Adult 1 each MC QDAY PRN #1 each 07/25/21 08/03/21 Unknown Rx Aerosol Mask] Nebulizer and Compressor 1 each MC QDAY #1 each 07/25/21 08/03/21 Unknown Rx [Innospire Mini Compressor Neb] predniSONE [Deltasone] 40 mg PO QDAY 2 Days #2 tablet 07/25/21 08/03/21 Unknown Rx ED Physical Exam - General Limitations: No Limitations - Other Other exam information: General: No acute distress Head: Atraumatic Eyes: normal appearance ENT: Moist mucous membranes Neck: Normal appearance, no midline tenderness Chest: Bilateral wheezing, tachypnea, on BiPAP CV: Regular rate and rhythm Abdomen: Soft, normal bowel sounds, nontender, nondistended, no rebound or guarding Back: Normal inspection Extremity: Normal inspection, full range of motion, no calf tenderness or leg edema Neuro: Alert O x 3, no facial asymmetry, speech clear, no gross motor sensory deficit Psych: Appropriate behavior Skin: No rash ED Course Vital Signs 08/03/21 08/03/21 08/03/21 17:18 17:21 18:19 Temperature 98.5 F Pulse Rate 114 H 110 H Respiratory 20 20 17 Rate Blood Pressure Blood Pressure 156/79 [Left] O2 Sat by Pulse 99 99 100 Oximetry 08/03/21 08/03/21 08/03/21 19:55 20:39 22:10 Temperature Pulse Rate 97 H 94 H Respiratory 20 16 14 Rate Blood Pressure 138/98 Blood Pressure [Left] O2 Sat by Pulse 99 99 100 Oximetry 08/03/21 08/03/21 08/03/21 22:16 22:30 22:45 Temperature Pulse Rate 99 H 95 H 97 H Respiratory 14 15 16 Rate Blood Pressure 146/83 153/83 Blood Pressure [Left] O2 Sat by Pulse 100 99 99 Oximetry 08/03/21 08/03/21 08/03/21 23:01 23:15 23:25 Temperature Pulse Rate 99 H 98 H 94 H Respiratory 15 15 15 Rate Blood Pressure 137/83 150/81 160/52 Blood Pressure [Left] O2 Sat by Pulse 99 99 99 Oximetry 08/03/21 08/03/21 08/04/21 23:31 23:45 00:01 Temperature Pulse Rate 96 H 92 H 91 H Respiratory 17 14 15 Rate Blood Pressure 147/79 136/80 128/74 Blood Pressure [Left] O2 Sat by Pulse 98 100 98 Oximetry ED Medical Decision Making - Lab Data Result diagrams: 08/03/21 18:12 08/03/21 18:12 Lab Results 08/03/21 08/03/21 08/03/21 Range/Units 18:12 18:12 18:12 WBC 9.9 (4.5-11.0) K/mm3 RBC 4.43 (3.65-5.03) M/mm3 Hgb 12.1 (10.1-14.3) gm/dl Hct 38.5 (30.3-42.9) % MCV 87 (79-97) fl MCH 27 L (28-32) pg MCHC 32 (30-34) % RDW 19.0 H (13.2-15.2) % Plt Count 281 (140-440) K/mm3 Lymph % (Auto) 16.8 (13.4-35.0) % [place] % (Auto) 7.2 (0.0-7.3) % Eos % (Auto) 1.0 (0.0-4.3) % Baso % (Auto) 0.4 (0.0-1.8) % Lymph # (Auto) 1.7 (1.2-5.4) K/mm3 [place] # (Auto) 0.7 (0.0-0.8) K/mm3 Eos # (Auto) 0.1 (0.0-0.4) K/mm3 Baso # (Auto) 0.0 (0.0-0.1) K/mm3 Seg Neutrophils % 74.6 H (40.0-70.0) % Seg Neutrophils # 7.4 (1.8-7.7) K/mm3 D-Dimer 396.80 H (0-234) ng/mlDDU Sodium 138 (137-145) mmol/L Potassium 4.1 (3.6-5.0) mmol/L Chloride 102.4 (98-107) mmol/L Carbon Dioxide 18 L (22-30) mmol/L Anion Gap 22 mmol/L BUN 35 H (7-17) mg/dL Creatinine 1.3 H (0.6-1.2) mg/dL Estimated GFR 51 ml/min BUN/Creatinine Ratio 27 % Glucose 491 H (65-100) mg/dL Calcium 9.0 (8.4-10.2) mg/dL Troponin T (0.00-0.029) ng/mL NT-Pro-B Natriuret Pep 75.03 (0-900) pg/mL 08/03/21 Range/Units 18:12 WBC (4.5-11.0) K/mm3 RBC (3.65-5.03) M/mm3 Hgb (10.1-14.3) gm/dl Hct (30.3-42.9) % MCV (79-97) fl MCH (28-32) pg MCHC (30-34) % RDW (13.2-15.2) % Plt Count (140-440) K/mm3 Lymph % (Auto) (13.4-35.0) % [place] % (Auto) (0.0-7.3) % Eos % (Auto) (0.0-4.3) % Baso % (Auto) (0.0-1.8) % Lymph # (Auto) (1.2-5.4) K/mm3 [place] # (Auto) (0.0-0.8) K/mm3 Eos # (Auto) (0.0-0.4) K/mm3 Baso # (Auto) (0.0-0.1) K/mm3 Seg Neutrophils % (40.0-70.0) % Seg Neutrophils # (1.8-7.7) K/mm3 D-Dimer (0-234) ng/mlDDU Sodium (137-145) mmol/L Potassium (3.6-5.0) mmol/L Chloride (98-107) mmol/L Carbon Dioxide (22-30) mmol/L Anion Gap mmol/L BUN (7-17) mg/dL Creatinine (0.6-1.2) mg/dL Estimated GFR ml/min BUN/Creatinine Ratio % Glucose (65-100) mg/dL Calcium (8.4-10.2) mg/dL Troponin T < 0.010 (0.00-0.029) ng/mL NT-Pro-B Natriuret Pep (0-900) pg/mL - EKG Data -: EKG Interpreted by Dc EKG shows normal: sinus rhythm, intervals (QTC 509), QRS complexes (QRSD 90), ST-T waves (NO STEMI) Rate: normal - Radiology Data Radiology results: report reviewed CHEST 1 VIEW INDICATION / CLINICAL INFORMATION: sob STUDY TIME: 1743 COMPARISON: 07/23/2021 FINDINGS: SUPPORT DEVICES: None HEART / MEDIASTINUM: No significant abnormality. LUNGS / PLEURA: Previous basilar atelectatic changes have resolved. Lung gar appear clear of infiltrates. No pneumothorax. ADDITIONAL FINDINGS: No significant additional findings. IMPRESSION: No significant acute abnormality CTA CHEST WITH IV CONTRAST INDICATION: sob, recent covid, elevator ddimer CONTRAST: 60 cc Omnipaque 350 IV COMPARISON: Portable chest x-ray tonight Three-plane MIP reconstructions were produced. All CT scans at this location are performed using CT dose reduction for ALARA by means of automated exposure control. FINDINGS: No significant axillary or chest wall abnormalities are seen. Views of the upper abdomen are blurred by motion but show cholecystectomy changes. No mediastinal or hilar masses are seen. Coronary artery calcifications are noted. Heart is not enlarged. No pleural effusions are seen. No pneumothorax or pneumomediastinum are noted. Lung gar are blurred by motion but show no obvious infiltrates, nodules, or masses. Aorta is not well opacified but shows no aneurysmal dilatation. I do not see obvious evidence of dissection. Pulmonary arterial system is moderately well opacified but motion artifact makes evaluation of smaller arteries quite challenging was significant artifact seen. The smaller arteries of the upper lobes are diffusely poorly opacified which I believe is more likely flow related than diffuse PTE. I do not see convincing evidence of central large PTE IMPRESSION: Challenging study as above with evaluation of smaller arteries were. No large central PTE is identified. No definite acute abnormalities are seen. - Medical Decision Making 36-year-old female presents to the hospital with shortness of breath and increased work of breathing requiring BiPAP. Treated with bronchodilators (continuous hour-long), BiPAP, Solu-Medrol, and steroids. CT angiogram chest performed no central pulmonary embolism identified. No infiltrate identified. 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 Patient provided IV fluids for mild dehydration noted on labs. Patient also received IV insulin for hyperglycemia. Hospitalist informed permission Critical Care Time: Yes Critical care time in (mins) excluding proc time.: 35 Critical care attestation.: If time is entered above; I have spent that time in minutes in the direct care of this critically ill patient, excluding procedure time. ED Disposition Clinical Impression: COPD exacerbation, Respiratory distress, Hyperglycemia Disposition: ADMITTED INPATIENT Is pt being admited?: Yes Condition: Stable Instructions: Chronic Obstructive Pulmonary Disease (ED) Referrals: BINTA ZAPATA MD [Primary Care Provider] - 3-5 Days Time of Disposition: 22:28 (Dr Tom/hosp)
--- NOTE | 2021-08-03 18:14 | XRay Report ---
CHEST 1 VIEW INDICATION / CLINICAL INFORMATION: sob STUDY TIME: 1743 COMPARISON: 07/23/2021 FINDINGS: SUPPORT DEVICES: None HEART / MEDIASTINUM: No significant abnormality. LUNGS / PLEURA: Previous basilar atelectatic changes have resolved. Lung gar appear clear of infil trates. No pneumothorax. ADDITIONAL FINDINGS: No significant additional findings. IMPRESSION: No significant acute abnormality Signer Name: Siddhartha Gunn MD Signed: 08/03/2021 6:10 PM Workstation Name: [id number]
[2021-08-03 19:16] LABS: Basophils % (Auto) 0.4 % (0.0-1.8); Eosinophils # (Auto) 0.1 K/mm3 (0.0-0.4); Hematocrit 38.5 % (30.3-42.9); Hemoglobin 12.1 gm/dl (10.1-14.3); Lymphocytes # (Auto) 1.7 K/mm3 (1.2-5.4); Lymphocytes % (Auto) 16.8 % (13.4-35.0); Mean Corpuscular HGB Conc 32 % (30-34); Mean Corpuscular Volume 87 fl (79-97); Monocytes # (Auto) 0.7 K/mm3 (0.0-0.8); Monocytes % (Auto) 7.2 % (0.0-7.3); Platelet Count 281 K/mm3 (140-440); Red Blood Count 4.43 M/mm3 (3.65-5.03)
[2021-08-03] MEDS ORDERED: SODIUM CHLORIDE 0.9% 500 ML 500 ML IV ONE (19:33)
[2021-08-03] MEDS ORDERED: INSULIN REGULAR, HUMAN 100 UNITS/1 ML IV ONE (21:56)
--- NOTE | 2021-08-03 22:09 | Cat Scan Report ---
CTA CHEST WITH IV CONTRAST INDICATION: sob, recent covid, elevator ddimer CONTRAST: 60 cc Omnipaque 350 IV COMPARISON: Portable chest x-ray tonight Three-plane MIP reconstructions were produced. All CT scans at this location are performed using CT d ose reduction for ALARA by means of automated exposure control. FINDINGS: No significant axillary or chest wall abnormalities are seen. Views of the upper abdomen ar e blurred by motion but show cholecystectomy changes. No mediastinal or hilar masses are seen. Fuller ry artery calcifications are noted. Heart is not enlarged. No pleural effusions are seen. No pneumoth orax or pneumomediastinum are noted. Lung gar are blurred by motion but show no obvious infiltrate s, nodules, or masses. Aorta is not well opacified but shows no aneurysmal dilatation. I do not see obvious evidence of diss ection. Pulmonary arterial system is moderately well opacified but motion artifact makes evaluation of smalle r arteries quite challenging was significant artifact seen. The smaller arteries of the upper lobes a re diffusely poorly opacified which I believe is more likely flow related than diffuse PTE. I do not see convincing evidence of central large PTE IMPRESSION: Challenging study as above with evaluation of smaller arteries were. No large central PTE is identified. No definite acute abnormalities are seen. Signer Name: Siddhartha Gunn MD Signed: 08/03/2021 10:05 PM Workstation Name: [id number]
[2021-08-03] MEDS ORDERED: INSULIN REGULAR, HUMAN 100 UNITS/1 ML ONE (22:30)
--- NOTE | 2021-08-03 22:59 | History and Physical Report ---
History of Present Illness Date of examination: 08/03/21 Date of admission: 08/03/21 Chief complaint: shortness of breath History of present illness: This is a 56-year-old female who came to the emergency room with chief complaint of shortness of breath. Patient has the past medical history of reactive airway disease after stan Covid in February of this year, diabetes, hypertension presents to the hospital planing of worsening shortness of breath. Patient mack es any lung disease prior to stan Covid. She has been back and forth to [facility] with complaints of wheezing and shortness of breath. Per ED note, she she was admitted here for the first time last week and diagnosed with COPD exacerbation. Patient states she gets temporary relief with emergent treatment but symptoms return. Patient with condition worsened shortness of breath with difficulty speaking around and CPAP was initiated. CTA of the chest is donenegative for pulmonary embolism. Negative for pleural effusion or pneumothorax. Also no obvious infiltrates, nodules or masses. Past History Past Medical History: COPD, diabetes Past Surgical History: No surgical history Social history: lives with family, full code. denies: smoking, alcohol abuse, IV drug use Family history: no significant family history Medications and Allergies Allergies Allergy/AdvReac Type Severity Reaction Status Date / Time No Known Allergies Allergy Verified 07/23/21 01:49 Home Medications Medication Instructions Recorded Confirmed Last Taken Type Insulin Aspart (Nf) [NovoLOG 20 units SQ QAM 07/23/21 08/03/21 07/22/21 History Flexpen] Insulin Aspart (Nf) [NovoLOG 22 units SQ QDAY 07/23/21 08/03/21 07/22/21 History Flexpen] Insulin Aspart (Nf) [NovoLOG 25 units SQ QPM 07/23/21 08/03/21 07/21/21 History Flexpen] Insulin Detemir [Levemir Flextouch] 40 units SQ QHS 07/23/21 08/03/21 07/22/21 History Lisinopril [Zestril] 5 mg PO QDAY 07/23/21 08/03/21 07/22/21 History Metformin HCl [metFORMIN] 1,000 mg PO BID 07/23/21 08/03/21 07/22/21 History Rosuvastatin Calcium 5 mg PO QHS 07/23/21 08/03/21 07/21/21 History ALBUTEROL NEB's [Proventil 0.083% 2.5 mg IH Q8H PRN #30 neb 07/25/21 08/03/21 Unknown Rx NEBS] Albuterol Sulfate [Proair 90 mcg IH Q4H PRN 30 Days #2 07/25/21 08/03/21 Unknown Rx Digihaler] aer.pw.bas Budesonide/Formoterol Fumarate 10.2 gm IH BID 30 Days #2 07/25/21 08/03/21 Unknown Rx [Symbicort 160-4.5 Mcg Inhaler] hfa.aer.ad Montelukast [Singulair] 10 mg PO QHS 30 Days #30 tablet 07/25/21 08/03/21 Unknown Rx Nebulizer Accessories [Adult 1 each MC QDAY PRN #1 each 07/25/21 08/03/21 Unknown Rx Aerosol Mask] Nebulizer and Compressor 1 each MC QDAY #1 each 07/25/21 08/03/21 Unknown Rx [Innospire Mini Compressor Neb] predniSONE [Deltasone] 40 mg PO QDAY 2 Days #2 tablet 07/25/21 08/03/21 Unknown Rx Review of Systems Constitutional: fatigue, weakness Ears, nose, mouth and throat: no epistaxis, no bleeding gums Respiratory: cough, shortness of breath, other (on BIPAP) Gastrointestinal: no melena Musculoskeletal: no neck stiffness, no neck pain Integumentary: no rash, no pruritis, no redness Hematologic/Lymphatic: no easy bruising, no easy bleeding, no lymphadenopathy, no lymphedema Exam - Constitutional Vitals: Temp Pulse Resp BP Pulse Ox 98.5 F 97 H 16 138/98 99 08/03/21 17:18 08/03/21 20:39 08/03/21 20:39 08/03/21 20:39 08/03/21 20:39 General appearance: Present: mild distress, well-nourished - EENT Eyes: Present: PERRL ENT: hearing intact, clear oral mucosa - Neck Neck: Present: supple, normal ROM - Respiratory Respiratory effort: accessory muscle use, other (on BIPAP) Respiratory: bilateral: diminished - Cardiovascular Heart Sounds: Present: S1 & S2. Absent: rub, click - Extremities Extremities: pulses symmetrical, No edema Peripheral Pulses: within normal limits - Abdominal General gastrointestinal: Present: soft, non-tender, non-distended, normal bowel sounds Female genitourinary: Present: normal - Integumentary Integumentary: Present: clear, warm, dry - Musculoskeletal Musculoskeletal: gait normal, strength equal bilaterally - Psychiatric Psychiatric: appropriate mood/affect, intact judgment & insight, cooperative - Neurologic Neurologic: CNII-XII intact, moves all extremities - Allied Health Allied health notes reviewed: nursing HEART Score - HEART Score Troponin: Troponin T < 0.010 ng/mL (0.00-0.029) 08/03/21 18:12 Results - Labs CBC & Chem 7: 08/04/21 04:47 08/04/21 04:47 Labs: Abnormal lab results 08/03/21 08/03/21 08/03/21 Range/Units 18:12 18:12 18:12 MCH 27 L (28-32) pg RDW 19.0 H (13.2-15.2) % Seg Neutrophils % 74.6 H (40.0-70.0) % D-Dimer 396.80 H (0-234) ng/mlDDU Carbon Dioxide 18 L (22-30) mmol/L BUN 35 H (7-17) mg/dL Creatinine 1.3 H (0.6-1.2) mg/dL Glucose 491 H (65-100) mg/dL Assessment and Plan - Patient Problems (1) COPD exacerbation Current Visit: Yes Status: Acute Plan to address problem: Continue respiratory care-BiPAP Bronchodilator, systemic steroid, and oxygen supplement Senior [employer] Billing Specialist consulted (2) Acute respiratory failure with hypoxia Current Visit: No Status: Acute Plan to address problem: Continue BiPAP, ABG, serial x-ray (3) Diabetes Current Visit: Yes Status: Acute Plan to address problem: Monitor blood sugar with sliding scale protocol Resume home antihyper glycemic Check hemoglobin A1c (4) Hyperglycemia Current Visit: Yes Status: Acute Plan to address problem: Elevated blood sugar likely steroid-induced Patient is on sliding scale per protocol for insulin coverage Home insulin resumed (5) DVT prophylaxis Current Visit: Yes Status: Acute Plan to address problem: Subcutaneous Lovenox
[2021-08-03] MEDS ORDERED: ONDANSETRON 4 MG/2 ML INJ IV PRN (23:03)
[2021-08-03] MEDS ORDERED: ALUM-MAG HYDROXIDE-SIMETHICONE 200-200-20MG/5ML ORAL LIQD 30 ML PO PRN (23:03)
[2021-08-03] MEDS ORDERED: ACETAMINOPHEN 325 MG TAB PO PRN (23:03)
[2021-08-03] MEDS ORDERED: SENNOSIDES 8.6 MG TAB PO PRN (23:03)
[2021-08-03] MEDS ORDERED: oxyCODONE /ACETAMINOPHEN 5-325MG TAB PO PRN (23:03)
[2021-08-03] MEDS ORDERED: MORPHINE 4 MG/1 ML INJ IV PRN (23:03)
[2021-08-03] MEDS ORDERED: METOCLOPRAMIDE 10 MG/2 ML INJ IV PRN (23:03)
[2021-08-03] MEDS ORDERED: MORPHINE 2 MG/1 ML INJ IV PRN (23:03)
[2021-08-03] MEDS ORDERED: NON-FORMULARY EACH (Albuterol Sulfate [Proair Digihaler] 90 MCG Aer.Pw.Bas) IH PRN (23:05)
[2021-08-04 05:48] LABS: Hematocrit 35.2 % (30.3-42.9); Hemoglobin 11.1 gm/dl (10.1-14.3); Mean Corpuscular HGB Conc 32 % (30-34); Mean Corpuscular Volume 87 fl (79-97); Platelet Count 278 K/mm3 (140-440); Red Blood Count 4.04 M/mm3 (3.65-5.03); Red Cell Distribution Width 19.3 % (13.2-15.2)
[2021-08-04 06:14] LABS: Albumin 3.3 g/dL (3.9-5); Calcium 9.3 mg/dL (8.4-10.2)
[2021-08-04] MEDS: INSULIN LISPRO 100 UNIT/ML SUB-Q SCH ×6 (07:27→21:59)
[2021-08-04] MEDS ORDERED: INSULIN LISPRO 100 UNIT/ML SUB-Q SCH (07:30)
[2021-08-04] MEDS ORDERED: INSULIN NPH/REGULAR 70/30 INJ SUB-Q ONE (09:00)
[2021-08-04] MEDS ORDERED: INSULIN NPH, HUMAN 100 UNIT/1 ML SUB-Q SCH ×2 (09:00→17:00)
[2021-08-04 09:04] LABS: Band Neutrophils # (Manual) 0.2 K/mm3; Total Cells Counted 100
[2021-08-04 09:05] LABS: RBC Morphology Normal
[2021-08-04] MEDS: metFORMIN 500 MG TAB PO SCH ×2 (09:06→18:22)
[2021-08-04] MEDS: ENOXAPARIN 40 MG/0.4 ML INJ SUB-Q SCH (09:08)
[2021-08-04] MEDS ORDERED: INSULIN GLARGINE 100 UNITS/ML SUB-Q SCH ×2 (10:00→22:00)
[2021-08-04] MEDS ORDERED: NON-FORMULARY EACH (Metformin Hcl [Metformin] 1,000 MG Tablet) PO SCH (10:00)
[2021-08-04] MEDS ORDERED: LISINOPRIL 5 MG TAB PO SCH (10:00)
--- NOTE | 2021-08-04 11:45 | Consultation ---
History of Present Illness Consult date: 08/04/21 Reason for consult: dyspnea History of present illness: 56 y/o female with shortness of breath. Patient also with stridor and raspy/hoarse voice that she has had for an unknown amount of time. 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 Not undergoing therapy. Not on oxygen therapy. Past History Past Medical History: COPD, diabetes Past Surgical History: No surgical history Social history: lives with family, full code. denies: smoking, alcohol abuse, IV drug use Family history: no significant family history Medications and Allergies Allergies Allergy/AdvReac Type Severity Reaction Status Date / Time No Known Allergies Allergy Verified 07/23/21 01:49 Home Medications Medication Instructions Recorded Confirmed Last Taken Type Insulin Aspart (Nf) [NovoLOG 20 units SQ QAM 07/23/21 08/03/21 07/22/21 History Flexpen] Insulin Aspart (Nf) [NovoLOG 22 units SQ QDAY 07/23/21 08/03/21 07/22/21 History Flexpen] Insulin Aspart (Nf) [NovoLOG 25 units SQ QPM 07/23/21 08/03/21 07/21/21 History Flexpen] Insulin Detemir [Levemir Flextouch] 40 units SQ QHS 07/23/21 08/03/21 07/22/21 History Lisinopril [Zestril] 5 mg PO QDAY 07/23/21 08/03/21 07/22/21 History Metformin HCl [metFORMIN] 1,000 mg PO BID 07/23/21 08/03/21 07/22/21 History Rosuvastatin Calcium 5 mg PO QHS 07/23/21 08/03/21 07/21/21 History ALBUTEROL NEB's [Proventil 0.083% 2.5 mg IH Q8H PRN #30 neb 07/25/21 08/03/21 Unknown Rx NEBS] Albuterol Sulfate [Proair 90 mcg IH Q4H PRN 30 Days #2 07/25/21 08/03/21 Unknown Rx Digihaler] aer.pw.bas Budesonide/Formoterol Fumarate 10.2 gm IH BID 30 Days #2 07/25/21 08/03/21 Unknown Rx [Symbicort 160-4.5 Mcg Inhaler] hfa.aer.ad Montelukast [Singulair] 10 mg PO QHS 30 Days #30 tablet 07/25/21 08/03/21 Unknown Rx Nebulizer Accessories [Adult 1 each MC QDAY PRN #1 each 07/25/21 08/03/21 Unknown Rx Aerosol Mask] Nebulizer and Compressor 1 each MC QDAY #1 each 07/25/21 08/03/21 Unknown Rx [Innospire Mini Compressor Neb] predniSONE [Deltasone] 40 mg PO QDAY 2 Days #2 tablet 07/25/21 08/03/21 Unknown Rx Active Meds: Active Medications Acetaminophen (Acetaminophen 325 Mg Tab) 650 mg PO Q4H PRN PRN Reason: Pain MILD(1-3)/Fever >100.5/QUIRO[place] Al Hydrox/Mg Hydrox/Simethicone (Alum-Mag Hydroxide-Simethicone [phone]/5ml Oral Liqd 30 Ml) 30 ml PO Q4H PRN PRN Reason: Indigestion Albuterol (Albuterol 2.5 Mg/3 Ml Nebu) 2.5 mg IH Q4HRT PRN PRN Reason: Shortness Of Breath Atorvastatin Calcium (Atorvastatin 10 Mg Tab) 10 mg PO QHS [facility] Enoxaparin Sodium (Enoxaparin 40 Mg/0.4 Ml Inj) 40 mg SUB-Q QDAY [facility] Last Admin: 08/04/21 09:08 Dose: 40 mg Documented by: Insulin Human Lispro (Insulin Lispro 100 Unit/Ml) 0 unit SUB-Q [facility]; Protocol Last Admin: 08/04/21 09:21 Dose: 10 unit Documented by: Insulin Human NPH (Insulin Nph, Human 100 Unit/1 Ml) 25 unit SUB-Q QDDIAB [facility] Last Admin: 08/04/21 09:17 Dose: 25 unit Documented by: Insulin Human NPH (Insulin Nph, Human 100 Unit/1 Ml) 25 unit SUB-Q QPMDIAB [facility] Lisinopril (Lisinopril 5 Mg Tab) 5 mg PO QDAY [facility] Last Admin: 08/04/21 09:07 Dose: 5 mg Documented by: Metformin HCl (Metformin 500 Mg Tab) 1,000 mg PO BIDDIAB [facility] Last Admin: 08/04/21 09:06 Dose: 1,000 mg Documented by: Metoclopramide HCl (Metoclopramide 10 Mg/2 Ml Inj) 10 mg IV Q6H PRN PRN Reason: Nausea And Vomiting Montelukast Sodium (Montelukast 10 Mg Tab) 10 mg PO QHS [facility] Morphine Sulfate (Morphine 2 Mg/1 Ml Inj) 2 mg IV Q4H PRN PRN Reason: Pain, Moderate (4-6) Morphine Sulfate (Morphine 4 Mg/1 Ml Inj) 4 mg IV Q4H PRN PRN Reason: Pain , Severe (7-10) Ondansetron HCl (Ondansetron 4 Mg/2 Ml Inj) 4 mg IV Q8H PRN PRN Reason: Nausea And Vomiting Oxycodone/Acetaminophen (Oxycodone /Acetaminophen 5-325mg Tab) 1 tab PO Q6H PRN PRN Reason: Pain, Moderate (4-6) Senna (Sennosides 8.6 Mg Tab) 8.6 mg PO Q12HR PRN PRN Reason: Constipation Sodium Chloride (Sodium Chloride 0.9% 10 Ml Flush Syringe) 10 ml IV BID [facility] Last Admin: 08/04/21 09:19 Dose: 10 ml Documented by: Sodium Chloride (Sodium Chloride 0.9% 10 Ml Flush Syringe) 10 ml IV PRN PRN PRN Reason: LINE FLUSH Review of Systems All systems: negative Physical Examination Vital signs: Vital Signs Temp Pulse Resp BP Pulse Ox 98.5 F 114 H 20 156/79 99 08/03/21 17:18 08/03/21 17:18 08/03/21 17:18 08/03/21 17:18 08/03/21 17:18 General appearance: no acute distress, alert, appears uncomfortable Eyes: non-icteric ENT: other (stridor, hoarse voice) Neck: supple Ascultation: Bilateral: clear Results - Laboratory Findings CBC and BMP: 08/04/21 04:47 08/04/21 04:47 PT/INR, D-dimer D-Dimer 396.80 ng/mlDDU (0-234) H 08/03/21 18:12 Abnormal lab findings: Abnormal Labs 08/03/21 08/03/21 08/03/21 18:12 18:12 18:12 MCH 27 L RDW 19.0 H Seg Neutrophils % 74.6 H Seg Neuts % (Manual) Lymphocytes % (Manual) Seg Neutrophils # Man Lymphocytes # (Manual) D-Dimer 396.80 H Chloride Carbon Dioxide 18 L BUN 35 H Creatinine 1.3 H Glucose 491 H POC Glucose Hemoglobin A1c Albumin 08/03/21 08/04/21 08/04/21 18:12 00:32 04:47 MCH RDW 19.3 H Seg Neutrophils % Seg Neuts % (Manual) 88.0 H Lymphocytes % (Manual) 7.0 L Seg Neutrophils # Man 9.3 H Lymphocytes # (Manual) 0.7 L D-Dimer Chloride Carbon Dioxide BUN Creatinine Glucose POC Glucose 441 H Hemoglobin A1c 11.4 H Albumin 08/04/21 08/04/21 08/04/21 04:47 09:04 11:22 MCH RDW Seg Neutrophils % Seg Neuts % (Manual) Lymphocytes % (Manual) Seg Neutrophils # Man Lymphocytes # (Manual) D-Dimer Chloride 108.9 H Carbon Dioxide 17 L BUN 37 H Creatinine 1.6 H Glucose 532 H* POC Glucose 416 H 305 H Hemoglobin A1c Albumin 3.3 L - Diagnostic Findings Chest x-ray: image reviewed Assessment and Plan 56 y/o female with shortness of breath, stridor and paralyzed vocal cord On review of CTA I saw some narrowing in the upper airway. I have ordered a neck CT noncontrast. It is done and does show narrowing of the upper airway. I am waiting on the official read as I am concerned that she would need ENT and if so, she is going to need to be transferred as we have no ENT available at this hospital. I don't feel this is a COPD exacerbation as her lungs are clear and no wheeze. I agree with no bronchodilator therapy as of now. May need to consider steroids pending what the final result of the CT is. Will discuss with IMS.
--- NOTE | 2021-08-04 12:21 | Electrocardiograph Report ---
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
--- NOTE | 2021-08-04 13:38 | Progress Note ---
Assessment and Plan Assessment and plan: 56-year-old female with past medical history of reactive airway disease after stan Covid19 and 02/2021, insulin-dependent diabetes, uncontrolled hypertension, and morbid obesity who presented for worsening wheezing and shortness of breath. #Possible upper airway stenosis -Pulmonology consulted; appreciate recs -CT neck noncontrast (08/04/2021) performed with concern of airway stenosis. Pending official radiological read. -CTA chest (08/04/2021) negative for pulmonary embolism. -If upper airway stenosis is visualized, patient will require transfer to outside hospital. ENT is not currently available at this facility. -IV steroids will be ordered to prevent possible airway edema if airway stenosis is detected. -Continue to monitor #COPD exacerbation -Low clinical suspicion for exacerbation given normal chest x-ray and lack of sputum production -Holding off on antibiotics. -Holding off on nebulizers and oxygen supplementation -Pulmonology on board; appreciate recs -Continue to monitor #Acute hypoxic respiratory failure-resolved -Patient currently on room air -Continue to monitor #Uncontrolled insulin dependent diabetes mellitus -Hemoglobin A1c 11.4 (on this hospitalization) -Home regimen: Lantus 40 units daily -Started NPH 25 units twice daily with high SSI -Diabetic diet. Continue Accu-Cheks with meals. -Low threshold for insulin drip if blood glucose cannot be controlled. Goal [id number] while hospitalized. -Continue to monitor #LOPEZ on CKD stage III -Creatinine 1.6 (on presentation 1.3). Baseline unknown -Pending renal ultrasound for further evaluation -Likely secondary to longstanding uncontrolled type 2 diabetes and elevated blood pressure -Renally dose medications and avoid nephrotoxic drugs #Morbid obesity #Counseling on medication compliance #Counseling on diabetes management -BMI 35.5 -Counseled patient on importance of lifestyle changes such as dietary adjustments, exercise, weight loss, and medication compliance. Patient expressed understanding. -Time: +20 minutes #DVT prophylaxis -Continue subcutaneous Lovenox 40 mg daily Disposition Plan: Continue medical management. Total Time Spent with Patient (Minutes): 40 History Interval history: No acute events overnight. Hospitalist Physical - Constitutional Vitals: Temp Pulse Resp BP Pulse Ox 98.0 F 79 22 121/73 99 08/04/21 11:21 08/04/21 11:21 08/04/21 11:21 08/04/21 11:21 08/04/21 11:21 General appearance: Present: no acute distress, well-nourished, obese - EENT Eyes: Present: PERRL, EOM intact ENT: hearing intact, clear oral mucosa, dentition normal - Neck Neck: Present: supple, normal ROM - Respiratory Respiratory effort: normal, stridor Respiratory: bilateral: wheezing, negative: rales, rhonchi - Cardiovascular Rhythm: regular Heart Sounds: Present: S1 & S2 - Extremities Extremities: no ischemia, pulses intact, pulses symmetrical, No edema, normal temperature, normal color Peripheral Pulses: within normal limits - Abdominal General gastrointestinal: soft, non-tender, non-distended, normal bowel sounds - Integumentary Integumentary: Present: clear, warm, dry - Psychiatric Psychiatric: appropriate mood/affect, intact judgment & insight, memory intact, cooperative - Neurologic Neurologic: CNII-XII intact, moves all extremities - Allied Health Allied health notes reviewed: nursing HEART Score - HEART Score Troponin: Troponin T < 0.010 ng/mL (0.00-0.029) 08/03/21 18:12 Results - Labs CBC & Chem 7: 08/04/21 04:47 08/04/21 04:47 Labs: Laboratory Last Values WBC 10.6 K/mm3 (4.5-11.0) 08/04/21 04:47 RBC 4.04 M/mm3 (3.65-5.03) 08/04/21 04:47 Hgb 11.1 gm/dl (10.1-14.3) 08/04/21 04:47 Hct 35.2 % (30.3-42.9) 08/04/21 04:47 MCV 87 fl (79-97) 08/04/21 04:47 MCH 28 pg (28-32) 08/04/21 04:47 MCHC 32 % (30-34) 08/04/21 04:47 RDW 19.3 % (13.2-15.2) H 08/04/21 04:47 Plt Count 278 K/mm3 (140-440) 08/04/21 04:47 Lymph % (Auto) 16.8 % (13.4-35.0) 08/03/21 18:12 Grainger % (Auto) 7.2 % (0.0-7.3) 08/03/21 18:12 Eos % (Auto) 1.0 % (0.0-4.3) 08/03/21 18:12 Baso % (Auto) 0.4 % (0.0-1.8) 08/03/21 18:12 Lymph # (Auto) 1.7 K/mm3 (1.2-5.4) 08/03/21 18:12 Grainger # (Auto) 0.7 K/mm3 (0.0-0.8) 08/03/21 18:12 Eos # (Auto) 0.1 K/mm3 (0.0-0.4) 08/03/21 18:12 Baso # (Auto) 0.0 K/mm3 (0.0-0.1) 08/03/21 18:12 Add Manual Diff Complete 08/04/21 04:47 Total Counted 100 08/04/21 04:47 Seg Neutrophils % Bread Jockey 08/04/21 04:47 Seg Neuts % (Manual) 88.0 % (40.0-70.0) H 08/04/21 04:47 Band Neutrophils % 2.0 % 08/04/21 04:47 Lymphocytes % (Manual) 7.0 % (13.4-35.0) L 08/04/21 04:47 Monocytes % (Manual) 3.0 % (0.0-7.3) 08/04/21 04:47 Nucleated RBC % Not Reportable 08/04/21 04:47 Seg Neutrophils # 7.4 K/mm3 (1.8-7.7) 08/03/21 18:12 Seg Neutrophils # Man 9.3 K/mm3 (1.8-7.7) H 08/04/21 04:47 Band Neutrophils # 0.2 K/mm3 08/04/21 04:47 Lymphocytes # (Manual) 0.7 K/mm3 (1.2-5.4) L 08/04/21 04:47 Abs React Lymphs (Man) 0.0 K/mm3 08/04/21 04:47 Monocytes # (Manual) 0.3 K/mm3 (0.0-0.8) 08/04/21 04:47 Eosinophils # (Manual) 0.0 K/mm3 (0.0-0.4) 08/04/21 04:47 Basophils # (Manual) 0.0 K/mm3 (0.0-0.1) 08/04/21 04:47 Metamyelocytes # 0.0 K/mm3 08/04/21 04:47 Myelocytes # 0.0 K/mm3 08/04/21 04:47 Promyelocytes # 0.0 K/mm3 08/04/21 04:47 Blast Cells # 0.0 K/mm3 08/04/21 04:47 WBC Morphology Not Reportable 08/04/21 04:47 Hypersegmented Neuts Not Reportable 08/04/21 04:47 Hyposegmented Neuts Not Reportable 08/04/21 04:47 Hypogranular Neuts Not Reportable 08/04/21 04:47 Smudge Cells Not Reportable 08/04/21 04:47 Toxic Granulation Not Reportable 08/04/21 04:47 Toxic Vacuolation Not Reportable 08/04/21 04:47 Dohle Bodies Not Reportable 08/04/21 04:47 Pelger-Huet Anomaly Not Reportable 08/04/21 04:47 Lev Rods Not Reportable 08/04/21 04:47 Platelet Estimate Not Reportable 08/04/21 04:47 Clumped Platelets Not Reportable 08/04/21 04:47 Plt Clumps, EDTA Not Reportable 08/04/21 04:47 Large Platelets Not Reportable 08/04/21 04:47 Giant Platelets Not Reportable 08/04/21 04:47 Platelet Satelliting Not Reportable 08/04/21 04:47 Plt Morphology Comment Not Reportable 08/04/21 04:47 RBC Morphology Normal 08/04/21 04:47 Dimorphic RBCs Not Reportable 08/04/21 04:47 Polychromasia Not Reportable 08/04/21 04:47 Hypochromasia Not Reportable 08/04/21 04:47 Poikilocytosis Not Reportable 08/04/21 04:47 Anisocytosis Not Reportable 08/04/21 04:47 Microcytosis Not Reportable 08/04/21 04:47 Macrocytosis Not Reportable 08/04/21 04:47 Spherocytes Not Reportable 08/04/21 04:47 Pappenheimer Bodies Not Reportable 08/04/21 04:47 Sickle Cells Not Reportable 08/04/21 04:47 Target Cells Not Reportable 08/04/21 04:47 Tear Drop Cells Not Reportable 08/04/21 04:47 Ovalocytes Not Reportable 08/04/21 04:47 Helmet Cells Not Reportable 08/04/21 04:47 [place] Bodies Not Reportable 08/04/21 04:47 Ledbetter Rings Not Reportable 08/04/21 04:47 [place] Cells Not Reportable 08/04/21 04:47 Bite Cells Not Reportable 08/04/21 04:47 Crenated Cell Not Reportable 08/04/21 04:47 Elliptocytes Not Reportable 08/04/21 04:47 Acanthocytes (Spur) Not Reportable 08/04/21 04:47 Rouleaux Not Reportable 08/04/21 04:47 Hemoglobin C Crystals Not Reportable 08/04/21 04:47 Schistocytes Not Reportable 08/04/21 04:47 Malaria parasites Not Reportable 08/04/21 04:47 Mendez Bodies Not Reportable 08/04/21 04:47 Hem Pathologist Commnt No 08/04/21 04:47 D-Dimer 396.80 ng/mlDDU (0-234) H 08/03/21 18:12 Sodium 145 mmol/L (137-145) D 08/04/21 04:47 Potassium 4.8 mmol/L (3.6-5.0) 08/04/21 04:47 Chloride 108.9 mmol/L (98-107) H 08/04/21 04:47 Carbon Dioxide 17 mmol/L (22-30) L 08/04/21 04:47 Anion Gap 24 mmol/L 08/04/21 04:47 BUN 37 mg/dL (7-17) H 08/04/21 04:47 Creatinine 1.6 mg/dL (0.6-1.2) H 08/04/21 04:47 Estimated GFR 40 ml/min 08/04/21 04:47 BUN/Creatinine Ratio 23 % 08/04/21 04:47 Glucose 532 mg/dL (65-100) H* 08/04/21 04:47 POC Glucose 190 mg/dL (70-105) H 08/04/21 13:11 Hemoglobin A1c 11.4 % (4-6) H 08/03/21 18:12 Calcium 9.3 mg/dL (8.4-10.2) 08/04/21 04:47 Total Bilirubin 0.30 mg/dL (0.1-1.2) 08/04/21 04:47 AST 7 units/L (5-40) 08/04/21 04:47 ALT 9 units/L (7-56) 08/04/21 04:47 Alkaline Phosphatase 115 units/L (35-129) 08/04/21 04:47 Troponin T < 0.010 ng/mL (0.00-0.029) 08/03/21 18:12 NT-Pro-B Natriuret Pep 75.03 pg/mL (0-900) 08/03/21 18:12 Total Protein 7.0 g/dL (6.3-8.2) 08/04/21 04:47 Albumin 3.3 g/dL (3.9-5) L 08/04/21 04:47 Albumin/Globulin Ratio 0.9 % 08/04/21 04:47 Valadez/IV: Voiding Method External Female Catheter Active Medications - Current Medications Current Medications: Generic Name Dose Route Start Last Admin Trade Name Freq PRN Reason Stop Dose Admin Acetaminophen 650 mg 08/03/21 23:03 Acetaminophen 325 Mg Tab PO Q4H PRN Pain MILD(1-3)/Fever >100.5/QUIROGA Al Hydrox/Mg Hydrox/Simethicone 30 ml 08/03/21 23:03 Alum-Mag Hydroxide-Simethicone 154-695-91hb/5ml Oral Liqd 30 Ml PO Q4H PRN Indigestion Albuterol 2.5 mg 08/03/21 23:14 Albuterol 2.5 Mg/3 Ml Nebu IH Q4HRT PRN Shortness Of Breath Atorvastatin Calcium 10 mg 08/04/21 22:00 Atorvastatin 10 Mg Tab PO QHS JUSTO Enoxaparin Sodium 40 mg 08/04/21 10:00 08/04/21 09:08 Enoxaparin 40 Mg/0.4 Ml Inj SUB-Q 40 mg QDAY [facility] Administration Insulin Human Lispro 0 unit 08/04/21 07:30 08/04/21 12:12 Insulin Lispro 100 Unit/Ml SUB-Q 8 unit ACHS [facility] Administration Protocol Insulin Human NPH 25 unit 08/04/21 09:00 08/04/21 09:17 Insulin Nph, Human 100 Unit/1 Ml SUB-Q 25 unit QDDIAB JUSTO Administration Insulin Human NPH 25 unit 08/04/21 17:00 Insulin Nph, Human 100 Unit/1 Ml SUB-Q QPMDIAB JUSTO Lisinopril 5 mg 08/04/21 10:00 08/04/21 09:07 Lisinopril 5 Mg Tab PO 5 mg QDAY JUSTO Administration Metformin HCl 1,000 mg 08/04/21 08:00 08/04/21 09:06 Metformin 500 Mg Tab PO 1,000 mg BIDDIAB JUSTO Administration Metoclopramide HCl 10 mg 08/03/21 23:03 Metoclopramide 10 Mg/2 Ml Inj IV Q6H PRN Nausea And Vomiting Montelukast Sodium 10 mg 08/04/21 22:00 Montelukast 10 Mg Tab PO QHS JUSTO Morphine Sulfate 2 mg 08/03/21 23:03 Morphine 2 Mg/1 Ml Inj IV Q4H PRN Pain, Moderate (4-6) Morphine Sulfate 4 mg 08/03/21 23:03 Morphine 4 Mg/1 Ml Inj IV Q4H PRN Pain , Severe (7-10) Ondansetron HCl 4 mg 08/03/21 23:03 Ondansetron 4 Mg/2 Ml Inj IV Q8H PRN Nausea And Vomiting Oxycodone/Acetaminophen 1 tab 08/03/21 23:03 Oxycodone /Acetaminophen 5-325mg Tab PO Q6H PRN Pain, Moderate (4-6) Senna 8.6 mg 08/03/21 23:03 Sennosides 8.6 Mg Tab PO Q12HR PRN Constipation Sodium Chloride 10 ml 08/04/21 10:00 08/04/21 09:19 Sodium Chloride 0.9% 10 Ml Flush Syringe IV 10 ml BID JUSTO Administration Sodium Chloride 10 ml 08/03/21 23:03 Sodium Chloride 0.9% 10 Ml Flush Syringe IV PRN PRN LINE FLUSH
--- NOTE | 2021-08-04 14:33 | Cat Scan Report ---
CT NECK WITHOUT INTRAVENOUS CONTRAST AND WITH MULTIPLANAR RECONSTRUCTION CLINICAL HISTORY: shortness of breath TECHNIQUE: 2.5 mm thick contiguous axial scans were obtained from the skull base down to the aortic arch. In add ition to evaluation of axial source images sagittal and coronal multiplanar reconstructions were prod uced and reviewed for this report. All CT imaging studies performed at this facility utilize dose modulation, iterative reconstruction o r weight based dosing, if appropriate, to obtain the lowest achievable radiation dose. FINDINGS: AIRWAY: There is mild dilatation of the right piriform sinus compared to that on the right. The right vocal cord is in a near midline position compared to that on the right. These findings suggest the p ossibility of right sided vocal cord paralysis. Correlation with laryngoscopic evaluation is advised. There is increased prevertebral soft tissue fullness displacing the larynx anteriorly. Mass in this location cannot be excluded. Laryngoscopic evaluation would be useful in the further evaluation of th is finding. LYMPH NODES: There is no indication of cervical lymphadenopathy. ORAL CAVITY/FLOOR OF MOUTH: No abnormalities are seen in evaluation of the oral cavity and tongue. Po rtions of the tongue are obscured by beam hardening artifact from dental amalgam. The floor the mouth has a normal appearance. MAJOR SALIVARY GLANDS: The parotid and submandibular salivary glands have a normal appearance. NASAL CAVITY AND PARANASAL SINUSES: Evaluation of the nasal cavity reveals no abnormality. The parana anne sinuses are free from inflammatory mucosal disease. ORBITS:No abnormalities of the visualized portions of the orbits are identified. Globes, optic nerves , extraocular muscles and lacrimal glands have an unremarkable appearance. THYROID GLAND: The thyroid gland is normal in size and homogeneous in attenuation. No focal thyroid l esions are identified. TEMPORAL BONES:Mastoid air cells are normally pneumatized. CERVICAL SPINE: Evaluation of the cervical spine is remarkable for anterior osteophyte formation at m ultiple levels. This is most pronounced at the C4-5, C5-6 and C6-7 levels. Lateral facet arthropathy is evident. LUNG APICES: Evaluation of the lung apices reveals no abnormality. There is no indication of lung nod ule or infiltrate. The visualized portions of the superior mediastinum have an unremarkable appearanc e. IMPRESSION: 1. Findings suggest possible left vocal cord paralysis. 2. Increased soft tissue fullness in the prevertebral space displacing the larynx anteriorly. A mass in this location cannot be excluded. 3. Further evaluation with laryngoscopy is suggested. Signer Name: Carlos Manuel Garcia MD Signed: 08/04/2021 2:29 PM Workstation Name: [id number]
--- NOTE | 2021-08-04 15:26 | Ultrasound Report ---
ULTRASOUND RENAL INDICATION: Assess for chronic renal failure COMPARISON: No relevant prior imaging study available. FINDINGS: RIGHT KIDNEY: Size: 11.6 cm. Echogenicity: Mildly increased. Cortical thickness: Normal. Stones: None. Hydronephrosis: None. Cyst or mass: 12 mm cyst is seen in the mid to lower portion. LEFT KIDNEY: Size: 11.1 cm. Echogenicity: Mildly increased. Cortical thickness: Normal. Stones: None. Hydronephrosis: None. Cyst or mass: None. Urinary Bladder: No significant abnormality. Free Fluid: None. Additional Findings: None. IMPRESSION: No acute sonographic abnormality of the kidneys Signer Name: Siddhartha Gunn MD Signed: 08/04/2021 3:22 PM Workstation Name: [id number]
[2021-08-04] MEDS: ALBUTEROL 2.5 MG/3 ML NEBU IH PRN (20:10)
[2021-08-04] MEDS ORDERED: NON-FORMULARY EACH (Insulin Detemir [Levemir Flextouch] 100 UNIT/ML Insuln.Pen) SQ SCH (22:00)
[2021-08-04] MEDS ORDERED: MONTELUKAST 10 MG TAB PO SCH (22:00)
[2021-08-04] MEDS ORDERED: ROSUVASTATIN CALCIUM 5 MG PO SCH (22:00)
[2021-08-05] MEDS: ALBUTEROL 2.5 MG/3 ML NEBU IH PRN (03:25)
[2021-08-05 05:24] LABS: Basophils % (Auto) 0.2 % (0.0-1.8); Eosinophils # (Auto) 0.1 K/mm3 (0.0-0.4); Eosinophils % (Auto) 0.6 % (0.0-4.3); Hematocrit 32.1 % (30.3-42.9); Hemoglobin 10.4 gm/dl (10.1-14.3); Lymphocytes % (Auto) 20.8 % (13.4-35.0); Mean Corpuscular HGB Conc 32 % (30-34); Mean Corpuscular Volume 85 fl (79-97); Monocytes # (Auto) 0.6 K/mm3 (0.0-0.8); Monocytes % (Auto) 6.1 % (0.0-7.3); Platelet Count 277 K/mm3 (140-440); Red Blood Count 3.79 M/mm3 (3.65-5.03); Red Cell Distribution Width 18.8 % (13.2-15.2)
[2021-08-05 05:35] LABS: Calcium 8.9 mg/dL (8.4-10.2)
[2021-08-05] MEDS ORDERED: EPINEPHrine RACEMIC 2.25% 0.5ML NEBU IH ONE ×2 (07:25→08:00)
[2021-08-05] MEDS ORDERED: methylPREDNISolone Sod Suc 125 MG in SODIUM CHLORIDE 0.9% 100 ML IV ONE (07:56)
[2021-08-05 08:18] VITALS: BP 261/114
[2021-08-05] MEDS ORDERED: methylPREDNISolone Sod Succinate 125 MG/2 ML INJ IV ONE (09:00)
--- NOTE | 2021-08-05 09:00 | Progress Note ---
Subjective Date of service: 08/05/21 Interval history: Called in for intubation by ICU staff Patient with morbid obesity, exacerbation of COPD, reactive airways, vocal cord paralysis. Currently on BiPAP, SPO2 100%. Spoken at the bedside to Dr Jay, who due to stable patient condition on BiPAP and possible mass causing vocal cord paralysis, does not want the patient to be intubated at this time. Objective - Constitutional Vitals: Vital Signs - 12hr 08/04/21 08/04/21 08/05/21 21:00 23:48 01:05 Temperature 97.9 F Pulse Rate 78 70 Pulse Rate [ Bilateral] Respiratory 14 Rate Respiratory Rate [Bilateral ] Blood Pressure 126/64 Blood Pressure [Left] O2 Sat by Pulse 95 98 Oximetry 08/05/21 08/05/21 08/05/21 03:27 05:28 07:24 Temperature 97.8 F Pulse Rate 72 131 H Pulse Rate [ 72 Bilateral] Respiratory 16 131 H Rate Respiratory 18 Rate [Bilateral ] Blood Pressure Blood Pressure 127/70 234/142 [Left] O2 Sat by Pulse 98 97 Oximetry 08/05/21 08/05/21 08/05/21 07:26 07:47 07:49 Temperature Pulse Rate 124 H 99 H Pulse Rate [ 94 H Bilateral] Respiratory 28 H 17 Rate Respiratory 12 Rate [Bilateral ] Blood Pressure 130/86 Blood Pressure 261/114 [Left] O2 Sat by Pulse 100 Oximetry - Labs CBC & Chem 7: 08/05/21 04:24 08/05/21 04:24 Labs: Abnormal lab results 08/04/21 08/04/21 08/04/21 Range/Units 04:47 09:04 11:22 MCH (28-32) pg RDW (13.2-15.2) % Seg Neutrophils % (40.0-70.0) % Seg Neuts % (Manual) 88.0 H (40.0-70.0) % Lymphocytes % (Manual) 7.0 L (13.4-35.0) % Seg Neutrophils # Man 9.3 H (1.8-7.7) K/mm3 Lymphocytes # (Manual) 0.7 L (1.2-5.4) K/mm3 Potassium (3.6-5.0) mmol/L Chloride (98-107) mmol/L Carbon Dioxide (22-30) mmol/L BUN (7-17) mg/dL Creatinine (0.6-1.2) mg/dL Glucose (65-100) mg/dL POC Glucose 416 H 305 H (70-105) mg/dL 08/04/21 08/04/21 08/05/21 Range/Units 13:11 21:14 04:24 MCH 27 L (28-32) pg RDW 18.8 H (13.2-15.2) % Seg Neutrophils % 72.3 H (40.0-70.0) % Seg Neuts % (Manual) (40.0-70.0) % Lymphocytes % (Manual) (13.4-35.0) % Seg Neutrophils # Man (1.8-7.7) K/mm3 Lymphocytes # (Manual) (1.2-5.4) K/mm3 Potassium (3.6-5.0) mmol/L Chloride (98-107) mmol/L Carbon Dioxide (22-30) mmol/L BUN (7-17) mg/dL Creatinine (0.6-1.2) mg/dL Glucose (65-100) mg/dL POC Glucose 190 H 139 H (70-105) mg/dL 08/05/21 08/05/21 Range/Units 04:24 07:23 MCH (28-32) pg RDW (13.2-15.2) % Seg Neutrophils % (40.0-70.0) % Seg Neuts % (Manual) (40.0-70.0) % Lymphocytes % (Manual) (13.4-35.0) % Seg Neutrophils # Man (1.8-7.7) K/mm3 Lymphocytes # (Manual) (1.2-5.4) K/mm3 Potassium 3.5 L D (3.6-5.0) mmol/L Chloride 109.6 H (98-107) mmol/L Carbon Dioxide 21 L (22-30) mmol/L BUN 31 H (7-17) mg/dL Creatinine 1.4 H (0.6-1.2) mg/dL Glucose 156 H (65-100) mg/dL POC Glucose 213 H (70-105) mg/dL
[2021-08-05] MEDS ORDERED: DEXTROSE 50% IN WATER (25GM) 50 ML SYRINGE IV PRN (09:11)
[2021-08-05] MEDS ORDERED: DEXTROSE 50% IN WATER (25GM) 50 ML VIAL IV PRN (09:12)
[2021-08-05] MEDS ORDERED: LORazepam 2 MG/ML VIAL IV ONE (09:30)
[2021-08-05] MEDS: ENOXAPARIN 40 MG/0.4 ML INJ SUB-Q SCH (09:35)
[2021-08-05] MEDS: POTASSIUM CHLORIDE 10 MEQ 10 MEQ/100 ML BAG IV SCH ×3 (09:38→12:48)
--- NOTE | 2021-08-05 09:47 | Cat Scan Report ---
CT neck w con INDICATION / CLINICAL INFORMATION: 56 years Female; concern neck mass OMNI 300 100 ML. TECHNIQUE: Thin cut axial images obtained. Sagittal and coronal reconstructions performed. All CT scans at this location are performed using CT dose reduction for ALARA by means of automated exposure control. COMPARISON: 08/04/2021-unenhanced CT of the neck FINDINGS: Again noted are findings which are suggestive of at least a partial left cord paralysis. There is asy mmetric fullness of the left piriform sinus when compared with the right. While no discrete lesion is identified, a more ill-defined mucosal/submucosal lesion cannot entirely be excluded. Again, direct visual inspection of this region may be of benefit. Better defined on the postcontrast study is a left level 4 lymph node identified, which measures 10 m m in short axis and may demonstrate mild enhancement. Much smaller, although mildly enhancing lymph n ode may be present in the left level 4 region as well. No other signs of adenopathy appreciated. No e vidence of necrotic lymph node appreciated. Overall, there is no significant change from prior exam. IMPRESSION: 1. Somewhat ill-defined prominence of soft tissue in the left piriform sinus region. Some component o f left vocal cord paralysis suggested. 2. Borderline sized and mildly enhancing left level 4 lymph node identified. Given these constellatio n of findings, direct visual inspection by laryngoscopy may be of benefit. Signer Name: Apolinar Maki MD, III Signed: 08/05/2021 9:43 AM Workstation Name: [id number]
--- NOTE | 2021-08-05 09:48 | Discharge Summary ---
<DESEANEarnestineMALIK NicholasShelley - Last Filed: 08/05/21 11:55> Providers - Providers Date of Admission: 08/04/21 04:05 Date of discharge: 08/05/21 Attending physician: KENIA BRADSHAW MD 08/04/21 07:57 Consult to Physician [CONS] Routine Comment: Consulting Provider: TIMO CARLSON Physician Instructions: Reason For Exam: Chronic respiratory distress s/p COVID in February [facility] Condition: Stable Hospital course: This is a 48-year-old female with COPD, DM, HTN, reactive airway disease s/p Covid (02/2021) and vocal cord paralysis presented to emergency department on 08/02 with worsening shortness of breath. While in the emergency department patient's condition worsened with difficulty speaking and worsening shortness of breath and she was placed on CPAP. CTA of the chest showed no pulmonary embolism, pleural effusion or pneumothorax. Patient was admitted to the hospitalist service with consults to pulmonology. Patient underwent a CT without contrast of her neck which showed findings suggestive of left vocal cord paralysis, increased soft tissue fullness in the perivertebral space displacing the larynx anteriorly, a mass cannot be excluded and further evaluation with laryngoscopy was suggested. And a CT neck with contrast showed somewhat ill- defined prominence of soft tissu in the left piriform sinus region, some component of left vocal cord paralysis suggested, borderline sized and mildly enhanced left level 4 lymph node and also suggested direct visual inspection via laryngoscope. Patient was initially admitted to the telemetry floor however this morning patient had a code met for increasing difficulty in breathing and stridor. Patient was placed on BiPAP therapy and transported to the ICU for possible intubation. Patient was not intubated and will be transferred to [facility] for further care. A/P Neuro: Anxiety -Patient medicated with 1 mg Ativan -Patient seems to be more comfortable and resting at this time -Avoid delirium -Maintain sleep-wake cycle -Fall and aspiration precautions -As needed oxycodone for pain Cardio: h/o HTN, CAD -Home p.o. lisinopril discontinued r/t LOPEZ -IV hydral prn -Blood pressure monitoring per protocol -Continue home Lipitor Resp: Possible airway stenosis, acute hypoxic respiratory failure,, acute kidney injury h/o COPD, paralyzed vocal cord, reactive airway disease -Code MET this morning for incresed stridor and placed on Bipap for desaturation, given racemic epi and steroids with improvement along with ativan. -Transferred to ICU for possible intubation which was held off -CCM/pulm consulted, appreciate recommendations -CT without contrast of her neck which showed findings suggestive of left vocal cord paralysis, increased soft tissue fullness in the perivertebral space displacing the larynx anteriorly, a mass cannot be excluded and further evaluation with laryngoscopy was suggested. -CT neck with contrast showed somewhat ill-defined prominence of soft tissu in the left piriform sinus region, some component of left vocal cord paralysis suggested, borderline sized and mildly enhanced left level 4 lymph node and also suggested direct visual inspection via laryngoscope -Continous SPO2 monitoring -Supplemental oxygenation as needed -Patient will be transferred to [facility] under Dr. Enrique Kerr -Patient needs ENT evaluation -IV steroids -Continue home Singulair, ProAir, Proventil GI: MO -BR Senokot -[id number] -N.p.o. given need for BiPAP therapy -Resume CC cardiac diet when able -Counseled on outpatient dietary and lifestyle modifications -Speech eval as needed : Acute kidney injury on chronic kidney disease stage III, hypokalemia, hyperchloremia, metabolic acidosis -Patient admitted with a creatinine/BUN of 1.3/35 -Hold home lisinopril -Renal ultrasound completed, no acute sonographic abnormality of the kidneys -Avoid nephrotoxic medications -Renally dose medications -Strict urine output -Repleat electrolytes -Trend BMP ID: NAD -Monitor fever and WBC curve -Monitor for signs symptoms of infection Heme: NAD -Transfuse for hemoglobin less than 7 -Monitor CBC -Lovenox subcu for prophylaxis -SCDs to bilateral lower extremities while in bed Endo: Hyperglycemia, h/o DM -Hold home Metformin -SSI -Hold a.m. Lantus at at bedtime p.m. Lantus as needed -Accu-Chek every 4 -Avoid hypoglycemia CCT: 60 mins Disposition: 02 SHORT TERM HOSPITAL Final Discharge Diagnosis (Prints w/discharge instructions): Anxiety, possible airway stenosis, acute hypoxic respiratory failure, acute on chronic kidney disease, diabetes, HTN, CAD, MO Time spent for discharge: 60 Core Measure Documentation - Palliative Care Palliative Care/ Comfort Measures: Not Applicable - Core Measures Any of the following diagnoses?: none Exam - Constitutional Vitals: Temp Pulse Resp BP Pulse Ox 97.8 F 99 H 17 130/86 100 08/05/21 05:28 08/05/21 07:49 08/05/21 07:49 08/05/21 07:49 08/05/21 07:49 General appearance: Present: no acute distress - EENT Eyes: Present: PERRL, EOM intact ENT: hearing intact, clear oral mucosa, dentition normal - Neck Neck: Present: normal ROM - Respiratory Respiratory effort: normal Respiratory: bilateral: rhonchi, other (stridor) - Cardiovascular Rhythm: regular Heart Sounds: Present: S1 & S2. Absent: systolic murmur, diastolic murmur - Extremities Extremities: no ischemia, pulses intact, pulses symmetrical, No edema, normal temperature, normal color, Full ROM Peripheral Pulses: within normal limits - Abdominal General gastrointestinal: Present: soft, non-tender, non-distended, normal bowel sounds - Integumentary Integumentary: Present: clear, warm, dry - Musculoskeletal Musculoskeletal: strength equal bilaterally - Psychiatric Psychiatric: cooperative - Neurologic Neurologic: CNII-XII intact, no focal deficits, moves all extremities - Allied Health Allied health notes reviewed: nursing, RT, social work Plan Activity: advance as tolerated Diet: low cholesterol, diabetic, renal Special Instructions: record daily weights, record daily BP diary, record blood sugar diary Additional Instructions: Transfer to [facility] Follow up with: BINTA ZAPATA MD [Primary Care Provider] - 3-5 Days <KENIA BRADSHAW - Last Filed: 08/06/21 06:47> Providers - Providers Date of Admission: 08/04/21 04:05 Attending physician: KENIA BRADSHAW MD 08/04/21 07:57 Consult to Physician [CONS] Routine Comment: Consulting Provider: TIMO CARLSON Physician Instructions: Reason For Exam: Chronic respiratory distress s/p COVID in February [facility] Pertinent studies: Reviewed. Procedures: None. Hospital course: I agree with the aforementioned note above. The high probability of a clinically significant, sudden or life threatening deterioration of the [resp, renal, neuro] system(s) required my full and direct attention, intervention and personal management. The aggregate critical care time was [60] minutes. This time is in addition to time spent performing reported procedures but includes the following: [x] Data Review and interpretation [x] Patient assessment and monitoring of vital signs [x] Documentation [x] Medication orders and management Exam - Constitutional Vitals: Temp Pulse Resp BP Pulse Ox 97.8 F 80 17 130/86 99 08/05/21 05:28 08/05/21 13:00 08/05/21 07:49 08/05/21 07:49 08/05/21 08:00
--- NOTE | 2021-08-05 09:48 | Progress Note ---
Assessment and Plan 56 y/o female with shortness of breath, stridor and paralyzed vocal cord 08/05/21: More anxiety related breathing issues than worsening of compromised airway. Patient much improved with ativan. Spoke with Dr. Enrique Kerr, ICU physician at [facility] who has agreed to accept the patient as we do not have ENT here at this facility. Patient is stable with good IV access and ready for transfer. Facesheet faxed and waiting on transfer agreement. Suggest continue PRN ativan therapy. Cool Air mist mask. Sats are 100% on room air. Appreciate [facility] assistance with this case and told Dr. Kerr we would be happy to accept the patient back at any time. On review of CTA I saw some narrowing in the upper airway. I have ordered a neck CT noncontrast. It is done and does show narrowing of the upper airway. I am waiting on the official read as I am concerned that she would need ENT and if so, she is going to need to be transferred as we have no ENT available at this hospital. I don't feel this is a COPD exacerbation as her lungs are clear and no wheeze. I agree with no bronchodilator therapy as of now. May need to consi regina steroids pending what the final result of the CT is. Will discuss with IMS. Subjective Date of service: 08/05/21 Interval history: Patient transfered to unit this am. Had worsening of stridor and panic attack. Placed on bipap anesthesia was called for intubation. I arrived a few minutes before anesthesia. patient had been given racemic epi and steroids with improvement, along with ativan. Objective Vital Signs - 12hr 08/04/21 08/05/21 08/05/21 23:48 01:05 03:27 Temperature 97.9 F Pulse Rate 70 Pulse Rate [ 72 Bilateral] Respiratory 14 Rate Respiratory 18 Rate [Bilateral ] Blood Pressure 126/64 Blood Pressure [Left] O2 Sat by Pulse 95 98 Oximetry 08/05/21 08/05/21 08/05/21 05:28 07:24 07:26 Temperature 97.8 F Pulse Rate 72 131 H 124 H Pulse Rate [ Bilateral] Respiratory 16 131 H 28 H Rate Respiratory Rate [Bilateral ] Blood Pressure Blood Pressure 127/70 234/142 261/114 [Left] O2 Sat by Pulse 98 97 Oximetry 08/05/21 08/05/21 07:47 07:49 Temperature Pulse Rate 99 H Pulse Rate [ 94 H Bilateral] Respiratory 17 Rate Respiratory 12 Rate [Bilateral ] Blood Pressure 130/86 Blood Pressure [Left] O2 Sat by Pulse 100 Oximetry Constitutional: no acute distress, alert, appears uncomfortable Eyes: non-icteric ENT: other (stridor, hoarse voice) Neck: supple Ascultation: Bilateral: clear CBC and BMP: 08/05/21 04:24 08/05/21 04:24 ABG, PT/INR, D-dimer: PT/INR, D-dimer D-Dimer 396.80 ng/mlDDU (0-234) H 08/03/21 18:12 Abnormal lab findings: Abnormal Labs 08/03/21 08/03/21 08/03/21 18:12 18:12 18:12 MCH 27 L RDW 19.0 H Seg Neutrophils % 74.6 H Seg Neuts % (Manual) Lymphocytes % (Manual) Seg Neutrophils # Man Lymphocytes # (Manual) D-Dimer 396.80 H Potassium Chloride Carbon Dioxide 18 L BUN 35 H Creatinine 1.3 H Glucose 491 H POC Glucose Hemoglobin A1c Albumin 08/03/21 08/04/21 08/04/21 18:12 00:32 04:47 MCH RDW 19.3 H Seg Neutrophils % Seg Neuts % (Manual) 88.0 H Lymphocytes % (Manual) 7.0 L Seg Neutrophils # Man 9.3 H Lymphocytes # (Manual) 0.7 L D-Dimer Potassium Chloride Carbon Dioxide BUN Creatinine Glucose POC Glucose 441 H Hemoglobin A1c 11.4 H Albumin 08/04/21 08/04/21 08/04/21 04:47 09:04 11:22 MCH RDW Seg Neutrophils % Seg Neuts % (Manual) Lymphocytes % (Manual) Seg Neutrophils # Man Lymphocytes # (Manual) D-Dimer Potassium Chloride 108.9 H Carbon Dioxide 17 L BUN 37 H Creatinine 1.6 H Glucose 532 H* POC Glucose 416 H 305 H Hemoglobin A1c Albumin 3.3 L 08/04/21 08/04/21 08/05/21 13:11 21:14 04:24 MCH 27 L RDW 18.8 H Seg Neutrophils % 72.3 H Seg Neuts % (Manual) Lymphocytes % (Manual) Seg Neutrophils # Man Lymphocytes # (Manual) D-Dimer Potassium Chloride Carbon Dioxide BUN Creatinine Glucose POC Glucose 190 H 139 H Hemoglobin A1c Albumin 08/05/21 08/05/21 08/05/21 04:24 07:23 08:55 MCH RDW Seg Neutrophils % Seg Neuts % (Manual) Lymphocytes % (Manual) Seg Neutrophils # Man Lymphocytes # (Manual) D-Dimer Potassium 3.5 L D Chloride 109.6 H Carbon Dioxide 21 L BUN 31 H Creatinine 1.4 H Glucose 156 H POC Glucose 213 H 275 H Hemoglobin A1c Albumin
[2021-08-05] MEDS ORDERED: INSULIN LISPRO 100 UNIT/ML SUB-Q SCH (10:00)
[2021-08-05] MEDS ORDERED: NON-FORMULARY EACH (Budesonide/Formoterol Fumarate [Symbicort 160-4.5 Mcg Inhaler] 10.2 GM IH SCH (10:00)
--- NOTE | 2021-08-05 11:00 | Event Note ---
Date: 08/05/21 Patient accepted to [facility]. Has bed and awaiting transfer. Patient requested that I contact I different family member than what is listed in the computer but she was having trouble finding the number. IMS updated. Discharge in place and nursing secretary is arranging transport.
[2021-08-05] MEDS ORDERED: hydrALAZINE 20 MG/1 ML INJ IV PRN (11:11)
[2021-08-05] MEDS ORDERED: ARFORMOTEROL 15 MCG/2 ML NEBU IH SCH (20:00)
[2021-08-05] MEDS ORDERED: BUDESONIDE 0.5 MG/2 ML NEBU IH SCH (20:00)
== END 2021-08-05 13:15 | disposition short-term general hospital (02) | DRG 189 ==
LOC: ED 17:10 → 4A 08-04 04:05 → CC1 08-05 08:07
PROVIDERS: ADMIT Hospitalist; ATTEND Student in an Organized Health Care Education/Training Program
PROC: 5A09457 Assistance with Respiratory Ventilation, 24-96 Consecutive Hours, Continuous Positive Airway Pressure (ICD-10-PCS; principal; 2021-08-04)
DX: J96.01 Acute respiratory failure with hypoxia (principal); N18.30 Chronic kidney disease, stage 3 unspecified; E66.01 Morbid (severe) obesity due to excess calories; Z68.35 Body mass index [BMI] 35.0-35.9, adult; E11.22 Type 2 diabetes mellitus with diabetic chronic kidney disease; J44.1 Chronic obstructive pulmonary disease with (acute) exacerbation; E11.65 Type 2 diabetes mellitus with hyperglycemia; I12.9 Hypertensive chronic kidney disease with stage 1 through stage 4 chronic kidney disease, or unspecified chronic kidney disease; N17.9 Acute kidney failure, unspecified; F41.9 Anxiety disorder, unspecified; I25.10 Atherosclerotic heart disease of native coronary artery without angina pectoris; J38.6 Stenosis of larynx; Z20.822 Contact with and (suspected) exposure to COVID-19
CPT/HCPCS: 36415; 70490; 70491; 71045; 71275; 76770; 80048; 80053; 82962; 83036; 83735; 83880; 84100; 84484; 85007; 85025; 85379; 93005; 94640; 94644; 94660; 94760; G0378; J1650; J1815; J2060; J2405; J2930; J3475; J3480; J7040; Q9967